=== PATIENT | female | born 1990 | race Caucasian/White ===

== ENCOUNTER → 2018-02-02 11:56 | Outpatient (CLI) | payer OTHER, SELFPAY ==
[2018-02-02 16:09] LABS: Estradiol 43.5 pg/mL; Follicle Stimulating Hormone 7.8 mIU/mL; Free T3 3.1 pg/mL (2.18-3.98); Luteinizing Hormone 10.8 mIU/mL; T4 Free Direct 0.95 ng/dL (0.76-1.46); Thyroid Stim Hormone (TSH) 3.38 uIU/mL (0.358-3.74)
[2018-02-02 16:11] LABS: hCG Titer Quant., Serum < 1 mIU/mL (<9 non-preg)
[2018-02-02 16:22] LABS: Hemoglobin A1c 5.2 % (4.2-6.3)
[2018-02-03 10:30] LABS: Progesterone Level 0.52 ng/mL (See Comment)
[2018-02-06 12:52] LABS: HPV Reflexed? NOT INDICATED
== END ==
PROVIDERS: Visit Provider Obstetrics & Gynecology
DX: N91.2 Amenorrhea, unspecified (principal); Z12.4 Encounter for screening for malignant neoplasm of cervix
CPT/HCPCS: 36415; 82670; 83001; 83002; 83036; 84144; 84403; 84439; 84443; 84481; 84702; 88175; G0145

== ENCOUNTER → 2018-06-01 08:37 | Outpatient (CLI) | payer OTHER, SELFPAY ==
[2018-06-01 09:38] LABS: hCG Titer Quant., Serum 124 mIU/mL (<9 non-preg)
== END ==
PROVIDERS: Family Provider Family Medicine; PCP Family Medicine; Visit Provider Obstetrics & Gynecology
DX: N91.2 Amenorrhea, unspecified (principal)
CPT/HCPCS: 36415; 84702

== ENCOUNTER → 2018-06-03 08:07 | Outpatient (CLI) | payer OTHER, SELFPAY ==
[2018-06-03 09:54] LABS: hCG Titer Quant., Serum 273 mIU/mL (<9 non-preg)
== END ==
PROVIDERS: Family Provider Family Medicine; PCP Family Medicine; Visit Provider Obstetrics & Gynecology
DX: N91.2 Amenorrhea, unspecified (principal)
CPT/HCPCS: 36415; 84702

== ENCOUNTER → 2018-07-04 15:55 | Outpatient (CLI) | payer OTHER, SELFPAY ==
[2018-07-04 16:59] LABS: Absolute Lymphocyte Count 2.22 X10^3/ul (0.83-4.51); Absolute Neutrophil Count 5.7 X10^3/uL (2.0-7.7); Basophil# 0.01 X10^3/uL; Basophil% 0.1 % (0-1); Eosinophil# 0.13 X10^3/uL; Eosinophils% 1.5 % (0-5); Hematocrit 38.7 % (37-47); Hemoglobin 12.6 g/dl (12.0-15.0); Lymphocyte # 2.22 X10^3/ul (4.0); Lymphocyte % 25.8 % (19-41); Mean Corp Hgb Conc 32.6 g/gl (32-36); Mean Corpuscular Hgb 26.9 pg (27.0-32.0); Mean Corpuscular Volume 82.5 fL (81-99); Mean Platelet Vol. 10.8 fl (6.2-12.0); Monocyte# 0.52 X10^3/uL; Neutrophil # 5.73 X10^3/uL (2.7-7.7); Neutrophil % 66.5 % (47-70); Platelet Count 232 K/mm3 (150-450); RBC Distribution Width CV 12.6 % (11.6-14.6); RBC Distribution Width SD 37.8 fl (35.1-43.9); Red Blood Count 4.69 M/mm3 (4.2-5.4); White Blood Count 8.6 K/mm3 (4.4-11.0)
[2018-07-04 17:05] LABS: POSITIVE COUNT NO; POSITIVE DIFFERENTIAL NO; POSITIVE MORPHOLOGY NO
[2018-07-04 18:16] LABS: HIV - WCH Non-Reactive (Nonreactive); Rubella IgG 116.3 IU/mL
[2018-07-04 20:32] LABS: Chlamydia Trachomatis by PCR Negative (Negative); Neisserai gonorrhoeae by PCR Negative (Negative); Probe Check PASS; Sample Adequacy Control PASS; Specimen Processing Control PASS
[2018-07-07 05:43] LABS: Rapid Plasmin Reagin (RPR) NONREACTIVE (NONREACTIVE)
[2018-07-07 13:10] LABS: HCV Quant. RNA PCR HCV Not Detected IU/mL (.)
[2018-07-07 13:41] LABS: HEPATITIS B SURFACE AG Negative (Negative)
== END ==
PROVIDERS: Family Provider Family Medicine; PCP Family Medicine; Referring Provider Obstetrics & Gynecology; Visit Provider Obstetrics & Gynecology
DX: Z34.90 Encounter for supervision of normal pregnancy, unspecified, unspecified trimester (principal)
CPT/HCPCS: 36415; 85025; 86592; 86703; 86762; 86850; 86900; 87086; 87088; 87340; 87491; 87522; 87591

== ENCOUNTER → 2018-09-01 13:39 | Outpatient (CLI) | payer OTHER, SELFPAY ==
[2018-09-01 13:18] VITALS: BMI 31.6
== END ==
PROVIDERS: Family Provider Family Medicine; PCP Family Medicine; Referring Provider Obstetrics & Gynecology; Visit Provider Obstetrics & Gynecology
DX: Z36.9 Encounter for antenatal screening, unspecified (principal)
CPT/HCPCS: 36415

== ENCOUNTER → 2018-11-14 14:14 | Outpatient (CLI) | payer OTHER, SELFPAY ==
[2018-11-14 13:50] VITALS: BMI 32.6
[2018-11-14 15:24] LABS: Absolute Lymphocyte Count 1.78 X10^3/ul (0.83-4.51); Absolute Neutrophil Count 6.6 X10^3/uL (2.0-7.7); Basophil# 0.02 X10^3/uL; Basophil% 0.2 % (0-1); Eosinophil# 0.21 X10^3/uL; Eosinophils% 2.3 % (0-5); Hematocrit 36.5 % (37-47); Hemoglobin 11.8 g/dl (12.0-15.0); Lymphocyte # 1.78 X10^3/ul (4.0); Lymphocyte % 19.8 % (19-41); Mean Corp Hgb Conc 32.3 g/gl (32-36); Mean Corpuscular Hgb 27.6 pg (27.0-32.0); Mean Corpuscular Volume 85.3 fL (81-99); Mean Platelet Vol. 11.1 fl (6.2-12.0); Monocyte# 0.37 X10^3/uL; Monocyte% 4.1 % (0-10); Neutrophil # 6.61 X10^3/uL (2.7-7.7); Neutrophil % 73.5 % (47-70); Platelet Count 186 K/mm3 (150-450); RBC Distribution Width CV 13.1 % (11.6-14.6); RBC Distribution Width SD 39.8 fl (35.1-43.9); Red Blood Count 4.28 M/mm3 (4.2-5.4)
[2018-11-14 15:27] LABS: POSITIVE COUNT NO; POSITIVE DIFFERENTIAL NO; POSITIVE MORPHOLOGY NO
[2018-11-14 16:02] LABS: Glucose Challenge Gest 1H 50g 162 mg/dL (70-140)
== END ==
PROVIDERS: Family Provider Family Medicine; PCP Family Medicine; Visit Provider Obstetrics & Gynecology
DX: Z34.00 Encounter for supervision of normal first pregnancy, unspecified trimester (principal)
CPT/HCPCS: 36415; 82950; 85025; 86850; 86900

== ENCOUNTER → 2018-11-22 10:04 | Outpatient (CLI) | payer OTHER, SELFPAY ==
[2018-11-14 13:50] VITALS: BMI 32.6
[2018-11-22 11:02] LABS: Glucose GTT-Gestation. Fasting 84 mg/dL (<105)
[2018-11-22 13:15] LABS: Glucose GTT-Gestational 1 Hr 154 mg/dL (<190)
[2018-11-22 13:47] LABS: Glucose GTT-Gestational 3 Hr 77 L (<145)
[2018-11-22 13:51] LABS: Glucose GTT-Gestational 2 Hr 141 mg/dL (<165)
== END ==
PROVIDERS: Family Provider Family Medicine; PCP Family Medicine; Referring Provider Nurse Practitioner Women's Health; Visit Provider Nurse Practitioner Women's Health
DX: O99.810 Abnormal glucose complicating pregnancy (principal); Z3A.00 Weeks of gestation of pregnancy not specified
CPT/HCPCS: 36415; 82951; 82952

== ENCOUNTER → 2019-01-10 | Outpatient (CLI) | payer OTHER, SELFPAY ==
[2019-01-10 14:55] VITALS: BMI 33.9
== END | disposition home or self-care (01) ==
LOC: LABSPEC 16:19
PROVIDERS: Family Provider Family Medicine; PCP Family Medicine; Referring Provider Nurse Practitioner Women's Health; Visit Provider Nurse Practitioner Women's Health
DX: Z34.03 Encounter for supervision of normal first pregnancy, third trimester (principal)
CPT/HCPCS: 87081

== ENCOUNTER 2019-02-12 19:05 | Inpatient (IN) | payer OTHER, SELFPAY ==
[2019-02-06 11:57] VITALS: BMI 34.4
[2019-02-12] MEDS: Lactated Ringers 1,000 ML 50 ML IV (19:35)
[2019-02-12 19:37] VITALS: BMI 35.1
[2019-02-12 20:00] LABS: Absolute Lymphocyte Count 2.47 X10^3/ul (0.83-4.51); Basophil# 0.01 X10^3/uL; Basophil% 0.1 % (0-1); Eosinophil# 0.18 X10^3/uL; Eosinophils% 1.7 % (0-5); Hematocrit 38.3 % (37-47); Hemoglobin 12.6 g/dl (12.0-15.0); Lymphocyte # 2.47 X10^3/ul (4.0); Lymphocyte % 23.9 % (19-41); Mean Corp Hgb Conc 32.9 g/gl (32-36); Mean Corpuscular Hgb 27.2 pg (27.0-32.0); Mean Corpuscular Volume 82.5 fL (81-99); Mean Platelet Vol. 11.5 fl (6.2-12.0); Monocyte% 6.8 % (0-10); Neutrophil # 6.95 X10^3/uL (2.7-7.7); Neutrophil % 67.4 % (47-70); POSITIVE COUNT NO; POSITIVE DIFFERENTIAL NO; POSITIVE MORPHOLOGY NO; Platelet Count 209 K/mm3 (150-450); RBC Distribution Width CV 13.9 % (11.6-14.6); RBC Distribution Width SD 41.4 fl (35.1-43.9); Red Blood Count 4.64 M/mm3 (4.2-5.4); White Blood Count 10.3 K/mm3 (4.4-11.0)
[2019-02-12] MEDS: 0.9% Normal Saline 100 ML IV.SOLN. INTRA-UTER (20:36)
[2019-02-12] MEDS: Oxytocin 30 units/NS 500 ml 30 UNITS/500 ML IV.SOLN IV (20:44)
[2019-02-13] MEDS: Lactated Ringers 1,000 ML 50 ML IV ×4 (01:56→15:38)
[2019-02-13] MEDS: fentaNYL-bupivacaine (epidural) 100 ML BAG EPIDURAL ×3 (03:31→12:41)
--- NOTE | 2019-02-13 04:29 | PCM.HPOB.BLA ---
- Problem List (1) Post-dates Status: Acute (2) Abnormal glucose affecting Status: Acute Comment: 3hr GTT normal (3) Family history of cleft lip Status: Acute (4) Status: Acute Qualifiers: Comment: Declined genetic, carrier screen. AFP negative. MFM anatomy US normal (5) Supervision of normal first Status: Acute Qualifiers: Comment: PRR POONAM 02/06/18 boy Michael Humphrey
[2019-02-13] MEDS: Ondansetron 4 MG/2 ML Vial IV (09:47)
[2019-02-13] MEDS: Oxytocin 30 units/NS 500 ml 30 UNITS/500 ML IV.SOLN 334 UNITS IV (16:11)
[2019-02-13] MEDS: Oxytocin 30 units/NS 500 ml 30 UNITS/500 ML IV.SOLN 167 UNITS IV (16:41)
--- NOTE | 2019-02-13 17:29 | OP.PCM_ITS ---
Problem List (1) Post-dates Status: Acute (2) Abnormal glucose affecting Status: Acute Comment: 3hr GTT normal (3) Family history of cleft lip Status: Acute (4) Status: Acute Qualifiers: Comment: Declined genetic, carrier screen. AFP negative. MFM anatomy US normal (5) Supervision of normal first Status: Acute Qualifiers: Comment: PRR POONAM 02/06/18 boy Michael Humphrey Vaginal Delivery Maternal Presentation: Medically Indicated Induction iol 41 weeks Method of Induction: Pitocin, Julian Bulb Amniotic Membrane Rupture Type: Spontaneous Amniotic Fluid Description: Clear Final POONAM: 02/06/19 Gestational age: 41 Weeks and Days Date of Procedure: 02/13/19 Pre-Operative Diagnosis: iol postdates Post-Operative Diagnosis: same Surgery/ Procedure Performed: Spontaneous Vaginal Delivery Type of Anesthesia: Epidural Description of Procedure: Patient began pushing and delivered the head in the JUVENAL presentation. The head was delivered atraumatically and a loose nuchal cord ?1 was identified and easily reduced over the 's head. The anterior and posterior shoulders delivered without complication followed by the rest of the and the was placed on the maternal abdomen. Delayed cord clamping was employed for approximately 60 seconds. Cord was clamped and cut and gentle traction was a pplied to the cord and the placenta delivered spontaneously immediately following it was noted to be intact with three-vessel cord. The perineum and vagina were inspected and noted to have no laceration. EBL was 300 cc. Patient and tolerated delivery well. Presentation: JUVENAL Placental Delivery Description: Spontaneous Placenta Disposition: [facility] Cord Vessel Description: 3 Vessels Cord Entanglement: Around neck x 1, loose Estimated Blood Loss: 300 A gender: Male Episiotomy Description: None Laceration: None Medications given after delivery: IV Pitocin Complications: None
[2019-02-13] MEDS: 0.9% Saline Lock 10 ML Syringe IV (19:27)
[2019-02-13 20:55] VITALS: BP 128/64; PULSE 109; RESP 18; TEMP 37.2
[2019-02-14 01:00] VITALS: BP 124/69; PULSE 98; RESP 18; TEMP 37.1
[2019-02-14 04:40] VITALS: BP 127/65; PULSE 106; RESP 18; TEMP 37
--- NOTE | 2019-02-14 08:33 | PCM.PN.OB ---
Patient Problems: Active and Suspected Problems (Last Reviewed 02/06/19 @ 11:57 by Antonia Bang) Post-dates (Acute) Subjective: doing well no complaints pain controlled no CP SOB N V ambulating well tolerating po lochia moderate, going well - Physical Exam General: Alert, Oriented x3 Abdomen: Soft, Non Tender, - - FF below U Vital Signs Temp Pulse Resp BP 98.6 F 106 H 18 127/65 H 02/14/19 04:40 02/14/19 04:40 02/14/19 04:40 02/14/19 04:40 Oxygen Delivery Method Room Air Weight: 231 lb Body Mass Index (BMI) 35.1 Intake and Output for Last 24 Hours 02/12/19 02/13/19 02/14/19 23:59 23:59 23:59 Intake Total 2214 / 2214 Output Total 650 / 650 Balance 1564 / 1564 Medical Necessity - Tobacco Use Smoking Status: Never smoker Assessment/Plan All Active Problems (Last Reviewed 02/06/19 @ 11:57 by Antonia Bang) Post-dates (Acute) Abnormal glucose affecting (Acute) Supervision of normal first (Acute) (Acute) Family history of cleft lip (Acute) s/p PPD # 1 1. routine post delivery care 2. breast feeding- support given 3. rh positive 4. rubella immune
[2019-02-14 09:20] VITALS: BP 116/62; PULSE 95; RESP 16; TEMP 36.8; O2SAT 97
[2019-02-14 13:00] VITALS: BP 116/72; PULSE 92; RESP 18; TEMP 36.8; O2SAT 97
[2019-02-14 20:30] VITALS: BP 127/71; PULSE 82; RESP 16; TEMP 36.9
[2019-02-15 01:26] VITALS: BP 126/65; PULSE 91; RESP 16; TEMP 36.6
--- NOTE | 2019-02-15 07:41 | PCM.PN.OB ---
Patient Problems: Active and Suspected Problems (Last Reviewed 02/06/19 @ 11:57 by Antonia Bang) Post-dates (Acute) Subjective: doing well no complaints pain controlled no CP SOB N V ambulating well tolerating po lochia moderate, going well - Physical Exam General: Alert, Oriented x3 Abdomen: Soft, Non Tender, - - FF below U Vital Signs Temp Pulse Resp BP Pulse Ox 97.9 F 91 16 126/65 H 97 02/15/19 01:26 02/15/19 01:26 02/15/19 01:26 02/15/19 01:26 02/14/19 13:00 Oxygen Delivery Method Room Air Weight: 231 lb Body Mass Index (BMI) 35.1 Intake and Output for Last 24 Hours 02/13/19 02/14/19 02/15/19 23:59 23:59 23:59 Intake Total 2214 / 2214 Output Total 650 / 650 Balance 1564 / 1564 Medical Necessity - Tobacco Use Smoking Status: Never smoker Assessment/Plan All Active Problems (Last Reviewed 02/06/19 @ 11:57 by Antonia Bang) Post-dates (Acute) Abnormal glucose affecting (Acute) Supervision of normal first (Acute) (Acute) Family history of cleft lip (Acute) s/p PPD # 2 1. routine post delivery care 2. breast feeding- support given 3. rh positive 4. rubella immune 5. Home today
--- NOTE | 2019-02-15 07:43 | PCM.DCVAG ---
Additional Instructions: If you experience any of the following, contact your healthcare provider. Bleeding that soaks a pad every hour for 2 hours Fever 100.4 or higher Unrelieved incision or abdominal pain Swelling, redness, discharge or bleeding from your incision or episiotomy site Your incision begins to separate Problems urinating (including inability to urinate or burning while urinating). Visual changes Severe headache Flu-like symptoms Pain or redness in one of both of your breasts Pain, warmth, tenderness or swelling in your legs, especially the calf area Frequent nausea and vomiting Symptoms of depression or anxiety If you experience any of the following, call 911 or go to the nearest Emergency Room. Chest pain Problems breathing Seizure activity Partial or complete paralysis of a body part, slurred speech, weakness or drooping of the face, or a sudden inability to walk or hold your balance Allergies/Adverse Reactions: Allergies amoxicillin [Amoxicillin] Allergy (Verified 02/12/19 20:23) Hives Medications to take at Discharge vitamin#30 30 mg iron-10 mg iron-folic acid 1 mg-omg3 capsule 1 cap PO DAILY cap 09/01/18 Primary Care Physician: Bebe Benoit MD [Primary Care Provider] - Test Results: Test results from this visit will be discussed in further detail at your follow-up appointment, if applicable.
--- NOTE | 2019-02-15 07:44 | DCINST_ITS ---
Additional Instructions: If you experience any of the following, contact your healthcare provider. * Bleeding that soaks a pad every hour for 2 hours * Fever 100.4 or higher * Unrelieved incision or abdominal pain * Swelling, redness, discharge or bleeding from your incision or episiotomy site * Your incision begins to separate * Problems urinating (including inability to urinate or burning while urinating). * Visual changes * Severe headache * Flu-like symptoms * Pain or redness in one of both of your breasts * Pain, warmth, tenderness or swelling in your legs, especially the calf area * Frequent nausea and vomiting * Symptoms of depression or anxiety If you experience any of the following, call 911 or go to the nearest Emergency Room. * Chest pain * Problems breathing * Seizure activity * Partial or complete paralysis of a body part, slurred speech, weakness or drooping of the face, or a sudden inability to walk or hold your balance Allergies/Adverse Reactions: Allergies amoxicillin [Amoxicillin] Allergy (Verified 02/12/19 20:23) Hives Medications to take at Discharge vitamin#30 30 mg iron-10 mg iron-folic acid 1 mg-omg3 capsule 1 cap PO DAILY cap 09/01/18 Primary Care Physician: Bebe Benoit MD [Primary Care Provider] - Test Results: Test results from this visit will be discussed in further detail at your follow- up appointment, if applicable.
[2019-02-15 09:00] VITALS: BP 126/71; PULSE 80; RESP 18; TEMP 36.3
[2019-02-15] MEDS: Naproxen 250 MG Tablet 500 MG PO (09:18)
== END 2019-02-15 12:25 | disposition home or self-care (01) | DRG 807 ==
PROVIDERS: Admitting Provider Obstetrics & Gynecology; Family Provider Family Medicine; PCP Family Medicine; Referring Provider Obstetrics & Gynecology; Visit Provider Obstetrics & Gynecology
DX: O48.0 Post-term pregnancy (principal); Z37.0 Single live birth; Z3A.41 41 weeks gestation of pregnancy; O69.81X0 Labor and delivery complicated by cord around neck, without compression, not applicable or unspecified
CPT/HCPCS: 59025; 59050; 85025; 86850; 86900; 99218; J7120; A4216; G0378; J2405

== ENCOUNTER → 2019-04-13 | Outpatient (CLI) | payer OTHER, SELFPAY ==
[2019-04-13 11:37] VITALS: BMI 32.4
[2019-04-18 11:04] LABS: HPV Reflexed? NOT INDICATED
== END | disposition home or self-care (01) ==
LOC: LABSPEC 13:32
PROVIDERS: Family Provider Family Medicine; PCP Family Medicine; Referring Provider Obstetrics & Gynecology; Visit Provider Obstetrics & Gynecology
DX: Z12.4 Encounter for screening for malignant neoplasm of cervix (principal)
CPT/HCPCS: 87624; 88175; G0145

== ENCOUNTER → 2020-04-25 | Outpatient (CLI) | payer OTHER, SELFPAY ==
[2019-04-13 11:37] VITALS: BMI 32.4
[2020-04-25 16:03] LABS: Potassium 4.3 mmol/L (3.5-5.1)
== END | disposition home or self-care (01) ==
LOC: LAB 14:45
PROVIDERS: PCP Family Medicine; Referring Provider Dermatology; Visit Provider Dermatology
DX: Z79.899 Other long term (current) drug therapy (principal); L70.0 Acne vulgaris; L40.8 Other psoriasis
CPT/HCPCS: 36415; 84132

== ENCOUNTER → 2020-11-07 13:15 | Outpatient (CLI) | payer OTHER, SELFPAY ==
[2019-04-13 11:37] VITALS: BMI 32.4
[2020-11-07 13:59] LABS: hCG Titer Quant., Serum < 1 mIU/mL (1-3)
== END ==
PROVIDERS: PCP Family Medicine; Referring Provider Obstetrics & Gynecology; Visit Provider Obstetrics & Gynecology
DX: N92.6 Irregular menstruation, unspecified (principal)
CPT/HCPCS: 36415; 84702

== ENCOUNTER → 2021-03-06 | Outpatient (CLI) | payer OTHER, SELFPAY ==
[2021-03-06 14:59] VITALS: BMI 34.3
[2021-03-10 17:33] LABS: HPV APTIMA, High Risk Negative (Negative)
== END | disposition home or self-care (01) ==
LOC: LABSPEC 16:40
PROVIDERS: PCP Family Medicine; Visit Provider Obstetrics & Gynecology
DX: Z12.4 Encounter for screening for malignant neoplasm of cervix (principal)
CPT/HCPCS: 87624; 88175; G0145

== ENCOUNTER → 2021-03-25 12:42 | Outpatient (CLI) | payer OTHER, SELFPAY ==
[2021-03-06 14:59] VITALS: BMI 34.3
[2021-03-18 14:59] VITALS: BMI 34.3
--- NOTE | 2021-03-25 12:43 | US_ITS ---
STUDY: THYROID ULTRASOUND REASON FOR EXAM: Female, 30 years old. Enlarged thyroid gland. TECHNIQUE: Ultrasound evaluation of the thyroid was performed with real-time and static christensen-scale imaging. COMPARISON: None. FINDINGS: RIGHT LOBE: 5.1 x 1.8 x 1.5 cm. Heterogenous. The wheat washer interrogated a 1.8 x 1.0 x 0.8 cm well-defined oval hypoechoic structure on the posterior margin of but probably external to the thyroid gland. No intrathyroid nodules are identified on the right. LEFT LOBE: 4.9 x 1.5 x 1.6 cm. Heterogenous. Nodule A:1.1 x 0.7 x 1.2 cm. Posterior aspect midpole. About half cystic, half solid. Isoechoic, solid than wide, smooth margin, punctate echogenic foci. TIRADS level Level 4. Nodule B: 0.9 x 0.5 x 1.0 cm. Also posterior aspect midpole. Solid, mixed hyperechoic and isoechoic, taller than wide, smooth margins, punctate echogenic foci. TIRADS Level 5. The technologist also interrogated a hypoechoic oval structure along the posterior margin of the thyroid gland likely the parathyroid gland. ISTHMUS: The isthmus measures 0.3 cm. US/Thyroid IMPRESSION: 2 left-sided nodules both of which have some suspicious features; consider referral for FNA or close ultrasound follow-up. Bilateral hypoechoic oval structures along the posterior margin of the thyroid gland interrogated by the technologist most likely represent parathyroid glands which are mildly prominent in size though likely physiologic; suggest correlation with parathyroid hormone levels. Electronically Signed: Navdeep Liu MD at 5:40 EDT Tel , Service support ,
[2021-03-25 14:09] LABS: T4 Free Direct 0.92 ng/dL (0.76-1.46); Thyroid Stim Hormone (TSH) 2.21 uIU/mL (0.358-3.74)
== END ==
PROVIDERS: PCP Family Medicine; Referring Provider Obstetrics & Gynecology; Visit Provider Obstetrics & Gynecology
DX: E28.2 Polycystic ovarian syndrome (principal)
CPT/HCPCS: 36415; 76536; 84439; 84443

== ENCOUNTER → 2021-04-23 14:44 | Outpatient (CLI) | payer OTHER, SELFPAY ==
--- NOTE | 2021-04-23 11:30 | ASPS_PTH ---
PATIENT: CB MCCANN LOC: [facility]#:[id number] AGE/SX: 34/F ROOM: RE04/23/[address]: Dr. Bill Trent MD : 1990 BED: DIS: SPEC #: [id number] RECD: 04/23/21 15:45 STATUS: NISA KEILY #: [id number] NESS: 04/23/21 11:[address]: Bill Trent DEPT: CYTOLOGY RECD BY: Karishma Ying ENTERED: 04/24/21 09:03 SP TYPE: ASPIRATION OTHR DR: Dr. Bebe Benoit MD Tissues: A - Thyroid gland, NOS B - Thyroid gland, NOS Procedures: Special Stain Group II Cytology Other HEADER OPERATION: Left thyroid fine needle aspiration PRE-OP DIAGNOSIS: Multiple thyroid nodules TISSUE SUBMITTED: A ? Left mid thyroid slides x6, B ? Left inferior thyroid slides x2 DIAGNOSIS CYTOLOGY A. Left mid thyroid nodule, FNA (smears): Consistent with chronic lymphocytic thyroiditis. Adequate for evaluation. B. Left inferior thyroid nodule, FNA (smears): Consistent with benign follicular nodule with extensive cystic changes. Adequate for evaluation. BUTCH:maisha 04/24/2021 COMMENT Correlation with clinical, radiologic findings and appropriate follow up are necessary. CYTOLOGY STUDY Slides are reviewed. CYTOLOGY GROSS A - Received are six smears labeled with the patient's name and designated per the requisition as left mid thyroid. Submitted for staining. B - Received are two smears labeled with the patient's name and designated per the requisition as left inferior thyroid. Submitted for staining. / maisha 04/24/2021 TC:5 CPT: 95606 x2
[2021-04-23 14:07] VITALS: BMI 33.4
[2021-04-23 15:28] LABS: PTHIN 80.8 pg/mL (18.4-80.1)
[2021-04-23 15:45] LABS: Calcium,Total 8.7 mg/dL (8.5-10.1); Phosphorus 3.6 mg/dL (2.5-4.9)
== END ==
PROVIDERS: PCP Family Medicine; Referring Provider Surgery; Visit Provider Surgery
DX: E04.2 Nontoxic multinodular goiter (principal); E21.5 Disorder of parathyroid gland, unspecified
CPT/HCPCS: 36415; 82310; 83970; 84100; 88161; 88313

== ENCOUNTER → 2021-08-24 08:37 | Outpatient (CLI) | payer OTHER, SELFPAY | PROVIDERS: PCP Family Medicine; Referring Provider Nurse Practitioner Women's Health; Visit Provider Nurse Practitioner Women's Health | DX: N97.0 Female infertility associated with anovulation (principal) | CPT/HCPCS: 36415 ==

== ENCOUNTER → 2021-09-11 11:11 | Outpatient (CLI) | payer OTHER, SELFPAY ==
[2021-09-11 11:51] LABS: Progesterone Level 1.02 ng/mL (See Comment)
== END ==
PROVIDERS: PCP Family Medicine; Referring Provider Nurse Practitioner Women's Health; Visit Provider Nurse Practitioner Women's Health
DX: N91.4 Secondary oligomenorrhea (principal)
CPT/HCPCS: 36415; 84144

== ENCOUNTER → 2021-09-21 15:15 | Outpatient (CLI) | payer OTHER, SELFPAY ==
[2021-09-21 15:53] LABS: hCG Titer Quant., Serum 16 mIU/mL (1-3)
== END ==
PROVIDERS: PCP Family Medicine; Referring Provider Obstetrics & Gynecology; Visit Provider Obstetrics & Gynecology
DX: N92.6 Irregular menstruation, unspecified (principal)
CPT/HCPCS: 36415; 84702

== ENCOUNTER → 2021-09-23 09:07 | Outpatient (CLI) | payer OTHER, SELFPAY ==
[2021-09-23 09:53] LABS: hCG Titer Quant., Serum 52 mIU/mL (1-3)
== END ==
PROVIDERS: PCP Family Medicine; Referring Provider Obstetrics & Gynecology; Visit Provider Obstetrics & Gynecology
DX: N92.6 Irregular menstruation, unspecified (principal)
CPT/HCPCS: 36415; 84702

== ENCOUNTER 2021-10-22 14:30 | Outpatient (CLI) | payer OTHER, SELFPAY ==
[2021-10-22 15:44] LABS: Thyroid Stim Hormone (TSH) 2.81 uIU/mL (0.358-3.74)
[2021-10-22 16:50] LABS: Amphetamine Urine VISTA NEGATIVE (<1000 ng/mL); Barbiturate Urine VISTA NEGATIVE (< 200 ng/mL); Benzodiazepine Urine VISTA NEGATIVE (< 200 ng/mL); Cocaine Urine VISTA NEGATIVE (< 300 ng/mL); Ecstacy Urine VISTA NEGATIVE (< 500 ng/mL); Methadone Urine VISTA NEGATIVE (< 300 ng/mL); PCP Urine VISTA NEGATIVE (< 25 ng/mL); THC Urine VISTA NEGATIVE (< 50 ng/mL); Vista UDS pH Range 7
[2021-10-26 18:08] LABS: Chlamydia By Nucleic Acid AMP Negative (Negative)
[2021-10-27 12:44] LABS: Gonococcus By Nucleic Acid AMP Negative (Negative)
== END 2021-10-22 23:59 | disposition short-term general hospital (02) ==
LOC: PAVLAB 14:31
PROVIDERS: PCP Family Medicine; Referring Provider Obstetrics & Gynecology; Visit Provider Obstetrics & Gynecology
DX: O99.280 Endocrine, nutritional and metabolic diseases complicating pregnancy, unspecified trimester (principal); E01.0 Iodine-deficiency related diffuse (endemic) goiter
CPT/HCPCS: 36415; 80307; 84443; 87086; 87088; 87491; 87591

== ENCOUNTER 2021-11-06 14:12 | Outpatient (CLI) | payer OTHER, SELFPAY ==
[2021-11-06 14:43] LABS: Absolute Lymphocyte Count 1.91 X10^3/uL (0.83-4.51); Absolute Neutrophil Count 5.1 X10^3/uL (2.0-7.7); Basophil# 0.02 X10^3/uL; Basophil% 0.3 % (0-1); Eosinophil# 0.17 X10^3/uL; Eosinophils% 2.2 % (0-5); Hematocrit 37.2 % (37-47); Hemoglobin 12.5 g/dL (12.0-15.0); Lymphocyte # 1.91 X10^3/ul (0.83-4.51); Lymphocyte % 25.1 % (19-41); Mean Corp Hgb Conc 33.6 g/dL (32-36); Mean Corpuscular Hgb 27.8 pg (27.0-32.0); Mean Corpuscular Volume 82.7 fL (81-99); Mean Platelet Vol. 10.7 fl (6.2-12.0); Monocyte# 0.35 X10^3/uL; Monocyte% 4.6 % (0-10); NRBC Flagged by Analyzer 0 % (0-5); Neutrophil # 5.14 X10^3/uL (2.7-7.7); Neutrophil % 67.7 % (47-70); Platelet Count 202 K/mm3 (150-450); RBC Distribution Width CV 12.3 % (11.6-14.6); RBC Distribution Width SD 37.5 fl (35.1-43.9); White Blood Count 7.6 K/mm3 (4.4-11.0)
[2021-11-06 15:07] LABS: PTHIN 45.8 pg/mL (18.4-80.1)
[2021-11-06 15:10] LABS: Glucose Challenge Gest 1H 50g 107 mg/dL (70-140)
[2021-11-06 15:32] LABS: Thyroid Stim Hormone (TSH) 2.02 uIU/mL (0.358-3.74)
[2021-11-06 15:52] LABS: HIV - WCH Non-Reactive (Nonreactive); Hepatitis B Surface Antigen Non-Reactive (Nonreactive); Hepatitis C Antibody Non-Reactive (Nonreactive); Rubella IgG Reactive (Nonreactive); Syphilis Antibodies Non-reactive
== END 2021-11-06 23:59 | disposition home or self-care (01) ==
LOC: LAB 14:15
PROVIDERS: Surgery; PCP Family Medicine; Referring Provider Obstetrics & Gynecology; Visit Provider Obstetrics & Gynecology
DX: O99.210 Obesity complicating pregnancy, unspecified trimester (principal); E04.1 Nontoxic single thyroid nodule
CPT/HCPCS: 36415; 82950; 83970; 84443; 85025; 86703; 86762; 86780; 86803; 86850; 86900; 86901; 87340

== ENCOUNTER 2021-11-16 14:31 | Outpatient (CLI) | payer OTHER, SELFPAY ==
[2021-04-23 14:07] VITALS: BMI 33.4
--- NOTE | 2021-11-16 14:37 | US_ITS ---
STUDY: THYROID ULTRASOUND REASON FOR EXAM: Female, 31 years old. thyroid nodules TECHNIQUE: Ultrasound evaluation of the thyroid was performed with real-time and static christensen-scale imaging. COMPARISON: 03/25/2021 FINDINGS: RIGHT LOBE: The right lobe of the thyroid gland measures 5.2 x 1.6 x 1.8 cm. There is a heterogeneous echotexture. There are no demonstrated solid, cystic or complex lesions. LEFT LOBE: The left lobe of the thyroid gland measures 4.9 x 1.7 x 1.7 cm. There is a heterogeneous echotexture. Nodule 1: Shrinking (7 x 8 x 4 mm from 12 x 7 x 11 mm) mixed cystic and solid isoechoic wider than tall ill-defined marginated nodule with no echogenic foci (TR 2) in the mid left lobe consistent with an adenoma. Nodule 2: No change in the 11 x 6 x 8 mm solid hypoechoic wider than tall ill-defined marginated nodule with no echogenic foci (TR 4) in the posterior left lobe consistent with an adenoma. ISTHMUS: The isthmus measures 4 mm thick. . The regional lymph nodes are normal. US/Thyroid IMPRESSION: Thyroiditis with small adenomas. Electronically Signed: Matt Ramirez MD at 15:30 EST ,
== END 2021-11-16 23:59 | disposition home or self-care (01) ==
PROVIDERS: PCP Family Medicine; Referring Provider Surgery; Visit Provider Surgery
DX: E04.1 Nontoxic single thyroid nodule (principal)
CPT/HCPCS: 76536

== ENCOUNTER 2021-12-31 11:43 | Outpatient (CLI) | payer OTHER, SELFPAY | END 2021-12-31 23:59 | disposition home or self-care (01) | PROVIDERS: PCP Family Medicine; Referring Provider Obstetrics & Gynecology; Visit Provider Obstetrics & Gynecology | DX: Z34.90 Encounter for supervision of normal pregnancy, unspecified, unspecified trimester (principal) | CPT/HCPCS: 36415 ==

== ENCOUNTER → 2022-02-26 | Outpatient (CLI) | payer OTHER, SELFPAY ==
[2022-02-26 12:36] LABS: Absolute Lymphocyte Count 1.83 X10^3/uL (0.83-4.51); Absolute Neutrophil Count 6.4 X10^3/uL (2.0-7.7); Basophil# 0.02 X10^3/uL; Basophil% 0.2 % (0-1); Eosinophil# 0.37 X10^3/uL; Eosinophils% 4.1 % (0-5); Hematocrit 35.7 % (37-47); Hemoglobin 11.4 g/dL (12.0-15.0); Lymphocyte # 1.83 X10^3/ul (0.83-4.51); Lymphocyte % 20.5 % (19-41); Mean Corp Hgb Conc 31.9 g/dL (32-36); Mean Corpuscular Hgb 27.2 pg (27.0-32.0); Mean Corpuscular Volume 85.2 fL (81-99); Mean Platelet Vol. 11.1 fl (6.2-12.0); Monocyte# 0.32 X10^3/uL; Monocyte% 3.6 % (0-10); NRBC Flagged by Analyzer 0 % (0-5); Neutrophil # 6.37 X10^3/uL (2.7-7.7); Neutrophil % 71.3 % (47-70); Platelet Count 198 K/mm3 (150-450); RBC Distribution Width CV 13.2 % (11.6-14.6); RBC Distribution Width SD 40.1 fl (35.1-43.9); Red Blood Count 4.19 M/mm3 (4.2-5.4); White Blood Count 8.9 K/mm3 (4.4-11.0)
[2022-02-26 13:07] LABS: Glucose Challenge Gest 1H 50g 147 mg/dL (70-140); Thyroid Stim Hormone (TSH) 1.53 uIU/mL (0.358-3.74)
== END | disposition home or self-care (01) ==
LOC: LAB 12:06
PROVIDERS: PCP Family Medicine; Referring Provider Obstetrics & Gynecology; Visit Provider Obstetrics & Gynecology
DX: O99.282 Endocrine, nutritional and metabolic diseases complicating pregnancy, second trimester (principal); E04.1 Nontoxic single thyroid nodule; Z3A.18 18 weeks gestation of pregnancy
CPT/HCPCS: 36415; 82950; 84443; 85025

== ENCOUNTER → 2022-03-11 | Outpatient (CLI) | payer OTHER, SELFPAY ==
[2022-03-11 08:09] LABS: Glucose GTT-Gestation. Fasting 87 mg/dL (<105)
[2022-03-11 09:15] LABS: Glucose GTT-Gestational 1 Hr 157 mg/dL (<190)
[2022-03-11 10:31] LABS: Glucose GTT-Gestational 2 Hr 167 mg/dL (<165)
[2022-03-11 10:33] LABS: Glucose GTT-Gestational 3 Hr 110 L (<145)
== END | disposition home or self-care (01) ==
LOC: LAB 06:52
PROVIDERS: PCP Family Medicine; Visit Provider Obstetrics & Gynecology
DX: Z13.1 Encounter for screening for diabetes mellitus (principal)
CPT/HCPCS: 36415; 82951; 82952

== ENCOUNTER → 2022-05-07 | Outpatient (CLI) | payer OTHER, SELFPAY | END | disposition home or self-care (01) | LOC: LABSPEC 16:44 | PROVIDERS: PCP Family Medicine; Referring Provider Obstetrics & Gynecology; Visit Provider Obstetrics & Gynecology | DX: Z34.80 Encounter for supervision of other normal pregnancy, unspecified trimester (principal) | CPT/HCPCS: 87081 ==

== ENCOUNTER 2022-06-04 21:47 | Outpatient (CLI) | payer OTHER, SELFPAY ==
[2022-06-04 21:58] VITALS: PULSE 106; TEMP 36.6; O2SAT 99
[2022-06-04 22:00] VITALS: BP 136/80; PULSE 103
[2022-06-04 22:04] VITALS: BMI 37.2
[2022-06-04 22:53] LABS: ROM Internal Control Test YES-OK TO RESULT pt. (Internal QC); ROM Patient Test Negative (Negative)
--- NOTE | 2022-06-08 03:40 | OB.TRI.PN ---
Progress Notes Progress Note: Patient presents for triage evaluation secondary to possible SROM and ctx FHT: 120 Moderate variability reactive no decelerations category I tracing [place]: irregular Contractions Assessment and plan: false labor membranes intact no cervical change Reactive NST, reassuring maternal and status patient discharged to home to follow-up as scheduled. See problem list details for additional plan information. Laboratory Studies: Laboratory Tests 06/04/22 Range/Units 22:10 Vag Amniotic Fld Detect Negative (Negative) Charges/Coding Procedures Urinary/Genital 52xxx-59xxx: 19865-70 non-stress test Interp
== END 2022-06-05 00:35 | disposition home or self-care (01) ==
LOC: WP 06-05 00:32 → WPOUT 06-07 08:01 → WP 06-07 08:02
PROVIDERS: PCP Family Medicine; Visit Provider Obstetrics & Gynecology
DX: O47.9 False labor, unspecified (principal)
CPT/HCPCS: 59025; 59050; 84112; 99218; G0378

== ENCOUNTER 2022-06-05 21:05 | Inpatient (IN) | payer OTHER, SELFPAY ==
[2022-06-05] VITALS (28 sets, daily range): BP systolic 108–152; BP diastolic 56–84; PULSE 82–125; TEMP 36.7–37.1; O2SAT 93–99; BMI 37.5
[2022-06-05] MEDS: LACTATED RINGERS 500 ML 999 ML IV (21:15)
[2022-06-05 21:33] LABS: Absolute Lymphocyte Count 1.76 X10^3/uL (0.83-4.51); Absolute Neutrophil Count 8.1 X10^3/uL (2.0-7.7); Basophil# 0.02 X10^3/uL; Basophil% 0.2 % (0-1); Eosinophil# 0.19 X10^3/uL; Eosinophils% 1.8 % (0-5); Hematocrit 36.8 % (37-47); Hemoglobin 11.7 g/dL (12.0-15.0); Lymphocyte # 1.76 X10^3/ul (0.83-4.51); Lymphocyte % 16.2 % (19-41); Mean Corp Hgb Conc 31.8 g/dL (32-36); Mean Corpuscular Hgb 26.5 pg (27.0-32.0); Mean Corpuscular Volume 83.3 fL (81-99); Mean Platelet Vol. 11.8 fl (6.2-12.0); Monocyte# 0.72 X10^3/uL; Monocyte% 6.6 % (0-10); NRBC Flagged by Analyzer 0 % (0-5); Neutrophil # 8.11 X10^3/uL (2.7-7.7); Neutrophil % 74.8 % (47-70); Platelet Count 186 K/mm3 (150-450); RBC Distribution Width CV 13.2 % (11.6-14.6); RBC Distribution Width SD 39.9 fl (35.1-43.9); Red Blood Count 4.42 M/mm3 (4.2-5.4); White Blood Count 10.8 K/mm3 (4.4-11.0)
[2022-06-05] MEDS: Lactated Ringers 1,000 ML 200 ML IV (21:46)
[2022-06-05] MEDS: fentaNYL-bupivacaine (epidural) 100 ML BAG EPIDURAL (22:12)
[2022-06-05] MEDS: Oxytocin 30 units/NS 500 ml 30 UNITS/500 ML IV.SOLN 334 UNITS IV (22:54)
--- NOTE | 2022-06-05 23:01 | HP.PCM.OB_ITS ---
HPI - General General Date of Admission: 06/05/22 HPI Narrative CB MCCANN, is a 31 F who presents IAL 5 cm dilated no vb lof good fm regular ctx. Maternal Data Information POONAM Calculator Estimated Delivery Date Method Current WG Current Estimate 06/03/22 Ultrasound #1 40w 2d Other Estimates 05/29/22 LMP (Uncertain) 41w 0d 06/03/22 Manual 40w 2d PFSH PFSH Medical History Left thyroid nodule PCOS (polycystic ovarian syndrome) Home Medications vitamin#30 30 mg iron-10 mg iron-folic acid 1 mg-omg3 capsule 1 cap PO DAILY 09/01/18 [History Last Taken 02/12/19 08:00] Allergy/AdvReac Type Severity Reaction Status Date / Time amoxicillin [Amoxicillin] Allergy Hives Verified 06/04/22 22:05 Surgical History S/P tonsillectomy and adenoidectomy Social History adopted: No household members: spouse and children number of children: 1 pets and animals: No Smoking Status: Never smoker alcohol intake: never substance use type: does not use caffeine: Yes seatbelt use: always do you feel safe at home: Yes additional social history: Nayely Smith Patient works at [employer] History 1 Elective abortions Hx Para 1 Spontaneous abortions Hx # Term Pregnancies Ectopic pregnancies Hx # Pregnancies Multiple births # of living children 1 Past Pregnancies Del. Date Name GA/Weeks Outcome Route Bth Weight Gen Labor Lgth Anesthesia Del Locatn Provider FOB 02/13/19 Michael 41 live - full term Male epidu ral [facility] Delivery Date: 02/13/19 Last Updated by: Talita Nava Post dates Visit Details Expected Delivery Route/Plan Labor Preferences- CB/BF classes: [] labor support person: [] labor intervention preferences: [] pain management options preferred: [] cut cord/dad catch: [] : [] PP control planned: [] discussed possible routes of delivery and associated risks: [] special requests: [] Plans Covid status: vaccinated and pos in pastg Flu vaccine: given Tdap vaccine: given Rhogam: na LARC form signed: declined movement and labor precautions reviewed. Problem list reviewed and updated with the most current plan of care details and appropriate orders placed. Relevant counseling for the gestational age provided. Continue routine care and follow up unless otherwise noted in visit notes/problem list details OB Flowsheet Initial Weight: 235 lb Date -?-?-?-?-?-?-?-?-?-?-?-?- EGA Weight BP Urine Prot -?-?-?-?-?-?-?-?-?-?-?-?- Glucose FHR FuHt Pres Dilation -?-?-?-?-?-?-?-?-?-?-?-?- Effaced St Visit Note 10/22/21 -?-?-?-?-?-?-?-?-?-?-?-?- 8w 0d 235 lb (+0 oz) 134/82 -?-?-?-?-?-?-?-?-?-?-?-?- 160 -?-?-?-?-?-?-?-?-?-?-?-?- SM- CRL 1.48 cm NOT cons with LMP 11/06/21 -?-?-?-?-?-?-?-?-?-?-?-?- 10w 1d 138/82 -?-?-?-?-?-?-?-?-?-?-?-?- 170 -?-?-?-?-?-?-?-?-?-?-?-?- SM- viable IUP s een hematoma resolved fu 4 weeks labs getting drawn today 12/01/21 -?-?-?-?-?-?-?-?-?-?-?-?- 13w 5d 232 lb 6 oz (-2 lb 10 oz) 124/80 Negative -?-?-?-?-?-?-?--?-?-?-?-?- Negative 140 -?-?-?-?-?-?-?-?-?-?-?-?- SM- no vb crampi ng 12/31/21 -?-?-?-?-?-?-?-?-?-?-?-?- 18w 0d 230 lb (-5 lb) 94/60 Negative -?-?-?-?-?-?-?-?-?-?-?-?- Negative 145 -?-?-?-?-?-?-?-?-?-?-?-?- SM- no vb lof go od fm no regular ctx 01/28/22 -?-?-?-?-?-?-?-?-?-?-?-?- 22w 0d 237 lb (+2 lb) 128/70 Negative -?-?-?-?-?-?-?-?-?-?-?-?- Negative 130 -?-?-?-?-?-?-?-?-?--?-?-?- JV- no lof ,vagi nal bleeding, or cramping. gct ordered. normal anatomy 02/26/22 -?-?-?-?-?-?-?-?-?-?-?-?- 26w 1d 240 lb 8 oz (+5 lb 8 oz) 136/70 Negative -?-?-?-?-?-?-?-?-?-?-?-?- Negative 135 25 -?-?-?-?-?-?-?-?-?-?-?-?- JV- glucola toda y. no lof, vaginal bleeding, or dec fm. 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 works at [employer] 03/12/22 -?-?-?-?-?-?-?-?-?-?-?-?- 28w 1d 240 lb (+5 lb) 240 lb (+5 lb) 128/70 Negative -?-?-?-?-?-?-?-?-?-?-?-?- Negative 148 28 -?-?-?-?-?-?-?-?-?-?-?-?- JV- no complaint s. tdap today. 03/26/22 -?-?-?-?-?-?-?-?-?-?-?-?- 30w 1d 242 lb (+7 lb) 128/84 Negative -?-?-?-?-?-?-?-?-?-?-?-?- Negative 135 30 -?-?-?-?-?-?-?-?-?--?-?-?- SM- no vb lof go od fm no regular ctx 04/09/22 -?-?-?-?-?-?-?-?-?-?-?-?- 32w 1d 241 lb 8 oz (+6 lb 8 oz) 126/60 Negative -?-?-?-?-?-?-?-?-?-?-?-?- Negative 135 33 -?-?-?-?-?-?-?-?-?-?-?-?- SM- no vb lof g ood fm no reuglar ctx 04/23/22 -?-?-?-?-?-?-?-?-?-?-?-?- 34w 1d 242 lb 8 oz (+7 lb 8 oz) 120/68 1+ -?-?-?-?-?-?-?-?-?-?-?-?- Negative 135 35 -?-?-?-?-?-?-?-?-?-?-?-?- SM no vb lof goo d fm no regualr ctx 05/07/22 -?-?-?-?-?-?-?-?-?-?-?-?- 36w 1d 245 lb 4 oz (+10 lb 4 oz) 117/74 Negative -?-?-?-?-?-?-?-?-?-?-?-?- Negative 135 36 -?-?-?-?-?-?-?-?-?-?-?-?- SM- no vb lof go od fm no regular ctx 05/13/22 -?-?-?-?-?-?-?-?-?-?-?-?- 37w 0d 246 lb (+11 lb) 124/76 Negative -?-?-?-?-?-?-?-?-?-?-?-?- Negative 135 37 Cephalic -?-?-?-?-?-?-?-?-?-?-?-?- SM- no vb lof go od fm n oregular ctx 05/21/22 -?-?-?-?-?-?-?-?-?-?-?-?- 38w 1d 267 lb (+32 lb) 124/72 Negative -?-?-?-?-?-?-?-?-?-?-?-?- Negative 131 38 Cephalic 3 -?-?-?-?-?-?-?-?-?-?-?-?- 60 -2 JV- no lof , vaginal bleeding, or dec fm. wants IOL at 39 weeks 05/28/22 -?-?-?-?-?-?-?-?-?-?-?-?- 39w 1d 247 lb (+12 lb) 122/82 Negative -?-?-?-?-?-?-?-?-?-?-?-?- Negative 135 40 Cephalic -?-?-?-?-?-?-?-?-?-?-?-?- JV- no lof, vagi nal bleeding, or dec fm. iol got moved to tuesday next week. 06/02/22 -?-?-?-?-?-?-?-?-?-?-?-?- 39w 6d 246 lb 6 oz (+11 lb 6 oz) 130/80 Trace -?-?-?-?-?-?-?-?-?-?-?-?- Negative 136 39 Cephalic 4 -?-?-?-?-?-?-?-?-?-?-?-?- 70 -1 -No CTX. Good FM. No VB, LOF. IOL sched 06/04. 06/05/22 -?-?-?-?-?-?-?-?-?-?-?-?- 40w 2d 246 lb 14.684 oz (+11 lb 14.684 oz) 136/65 152/72 146/81 148/75 108/56 136/65 129/62 128/70 134/68 123/65 134/84 134/60 -?-?-?-?-?-?-?-?-?-?-?-?- -?-?-?-?-?-?-?-?-?-?-?-?- NST FHR Rate Baby A Baseline: 140 Variability:: Moderate Accelerations:: 15 x 15 Decelerations:: None NST Reactive:: Yes FHR Category:: Category I Uterine Activity:: q3-5 ROS Constitutional Constitutional: Reports systems reviewed and no addt'l complaints, except as documented ENT HEENT: Reports systems reviewed and no addt'l complaints, except as documented Cardiovascular Cardiovascular: Reports systems reviewed and no addt'l complaints, except as documented Respiratory/Chest Respiratory/Chest: Reports systems reviewed and no addt'l complaints, except as documented Gastrointestinal Gastrointestinal: Reports systems reviewed and no addt'l complaints, except as documented and nausea; Denies abdominal pain Genitourinary Genitourinary: Reports systems reviewed and no addt'l complaints, except as documented, contractions Details: present and frequency (regular ) and movement Details: present Musculoskeletal Musculoskeletal: Reports systems reviewed and no addt'l complaints, except as documented Integumentary Integumentary: Reports as per HPI Neurologic Neurologic: Reports systems reviewed and no addt'l complaints, except as documented Endocrine Endocrinology: Reports systems reviewed and no addt'l complaints, except as documented Vital Signs Vital Signs Vital Signs: 06/05/22 21:15 06/05/22 21:15 06/05/22 21:15 Temperature Temperature Source Pulse Rate 87 Blood Pressure 136/65 H BP Systolic 136 BP Diastolic 65 Pulse Ox 97 06/05/22 21:15 06/05/22 21:15 06/05/22 21:48 Temperature 98.8 F Temperature Source Temporal Pulse Rate 95 Blood Pressure BP Systolic BP Diastolic Pulse Ox 06/05/22 21:48 06/05/22 21:52 06/05/22 21:52 Temperature Temperature Source Pulse Rate 96 Blood Pressure BP Systolic BP Diastolic Pulse Ox 93 98 06/05/22 21:54 06/05/22 21:54 06/05/22 21:57 Temperature Temperature Source Pulse Rate 96 91 Blood Pressure 152/72 H BP Systolic 152 BP Diastolic 72 Pulse Ox 06/05/22 21:57 06/05/22 21:58 06/05/22 21:58 Temperature Temperature Source Pulse Rate 90 Blood Pressure 146/81 H BP Systolic 146 BP Diastolic 81 Pulse Ox 98 06/05/22 22:02 06/05/22 22:02 06/05/22 22:03 Temperature Temperature Source Pulse Rate 96 Blood Pressure 148/75 H BP Systolic 148 BP Diastolic 75 Pulse Ox 98 06/05/22 22:03 06/05/22 22:07 06/05/22 22:07 Temperature Temperature Source Pulse Rate 105 H 114 H Blood Pressure BP Systolic BP Diastolic Pulse Ox 97 06/05/22 22:09 06/05/22 22:09 06/05/22 22:12 Temperature Temperature Source Pulse Rate 125 H 110 H Blood Pressure 108/56 L BP Systolic 108 BP Diastolic 56 Pulse Ox 06/05/22 22:12 06/05/22 22:13 06/05/22 22:13 Temperature Temperature Source Pulse Rate 107 H Blood Pressure 136/65 H BP Systolic 136 BP Diastolic 65 Pulse Ox 98 06/05/22 22:17 06/05/22 22:17 06/05/22 22:19 Temperature Temperature Source Pulse Rate 107 H Blood Pressure 129/62 H BP Systolic 129 BP Diastolic 62 Pulse Ox 97 06/05/22 22:19 06/05/22 22:23 06/05/22 22:23 Temperature Temperature Source Pulse Rate 108 H 114 H Blood Pressure 128/70 H BP Systolic 128 BP Diastolic 70 Pulse Ox 06/05/22 22:22 06/05/22 22:28 06/05/22 22:28 Temperature Temperature Source Pulse Rate 109 H Blood Pressure 134/68 H BP Systolic 134 BP Diastolic 68 Pulse Ox 99 06/05/22 22:27 06/05/22 22:33 06/05/22 22:33 Temperature Temperature Source Pulse Rate 97 Blood Pressure 123/65 H BP Systolic 123 BP Diastolic 65 Pulse Ox 94 06/05/22 22:32 06/05/22 22:37 06/05/22 22:37 Temperature Temperature Source Pulse Rate 96 Blood Pressure BP Systolic BP Diastolic Pulse Ox 99 98 06/05/22 22:38 06/05/22 22:38 06/05/22 22:56 Temperature Temperature Source Pulse Rate 96 Blood Pressure 134/84 H 134/60 H BP Systolic 134 134 BP Diastolic 84 60 Pulse Ox 06/05/22 22:56 Temperature Temperature Source Pulse Rate 90 Blood Pressure BP Systolic BP Diastolic Pulse Ox Weight Weight: 246 lb 14.684 oz Body Mass Index (BMI) 37.5 Physical Exam Const alert, oriented x3 and healthy appearing Constitutional Narrative: uncomfortable with contractions HEENT normocephalic and moist oral mucous membranes Head and Scalp: atraumatic Neck full ROM, no lymphadenopathy, supple and thyroid normal General: trachea midline Thyroid: thyroid normal Lymph Lymphatic: no lymphadenopathy noted Chest inspection of chest normal Resp normal respiratory effort Cardio regular rate GI normal to inspection, nondistended, normoactive bowel sounds, soft to palpation and non-tender Inspection: gravid external exam normal Bimanual Exam - Vag & Uterus: uterus non-tender Manual OB Exam: estimated gestational size appropriate, presentation cephalic, dilated, effaced and station Extremity normal to inspection General Extremity: Negative for edema Skin no rashes or lesions noted Neuro deep tendon reflexes 2+ bilaterally Motor Exam: strength 5/5 throughout and clonus absent Psych mental status grossly normal Labs Labs Labs: Blood Type A POSITIVE Antibody Screen NEGATIVE Hct 36.8 % (37-47) L Hgb 11.7 g/dL (12.0-15.0) L Syphilis Total Ab Non-reactive VZV IgG Antibody 1610 index (0-134) H Rubella IgG Antibody Reactive (Nonreactive) Hep Bs Antigen Non-Reactive (Nonreactive) Chlamydia DNA (KARLOS) Negative (Negative) Neisseria gonorrhoeae DNA (KARLOS) Negative (Negative) HIV 1&2 Antibody Non-Reactive (Nonreactive) Glucose 1 Hr 50 gm 147 mg/dL (70-140) H Rhogam given: No Miscellaneous Test Assessment & Plan (1) Left thyroid nodule: COMMENT: neg bx. Needs rpt US and OV with Dr Trent 10/2021, labs ordered (2) Obesity affecting : COMMENT: 1 tm gct nl (3) : QUALIFIERS: Weeks of gestation: 39 weeks Qualified Code(s): Z3A.39 - 39 weeks gestation of COMMENT: GBS neg. declined genetic, carrier screen. Neg AFP, nl anatomy (4) Supervision of other normal : COMMENT: PRR POONAM 06/03/22 boy Vitor PC:Michael Spouse:Humphrey (5) Infertility associated with anovulation: COMMENT: clomid (6) Family history of cleft lip: COMMENT: Pt father with unilateral cleft lip (7) Vaginal delivery: COMMENT: SM IAL 40 boy Wake PLAN: Plan Patient presents IAL, plan expectant management for , pitocin/AROM PRN if needed. Pain management: plans epidural. GBS neg. Management of any complications: none I have reviewed the [facility] and made any clinically relevant updates.
--- NOTE | 2022-06-05 23:06 | EX.PCM.OBRPT ---
Assessment & Plan (1) Vaginal delivery: COMMENT: SM IAL 40 boy White (2) Left thyroid nodule: COMMENT: neg bx. Needs rpt US and OV with Dr Trent 10/2021, labs ordered (3) Obesity affecting : COMMENT: 1 tm gct nl (4) : QUALIFIERS: Weeks of gestation: 39 weeks Qualified Code(s): Z3A.39 - 39 weeks gestation of COMMENT: GBS neg. declined genetic, carrier screen. Neg AFP, nl anatomy (5) Supervision of other normal : COMMENT: PRR POONAM 06/03/22 boy White PC:Michael Spouse:Humphrey (6) Infertility associated with anovulation: COMMENT: clomid (7) Family history of cleft lip: COMMENT: Pt father with unilateral cleft lip Maternal Data Information POONAM Calculator Estimated Delivery Date Method Current WG Current Estimate 06/03/22 Ultrasound #1 40w 2d Other Estimates 05/29/22 LMP (Uncertain) 41w 0d 06/03/22 Manual 40w 2d Vaginal Delivery Operative Information Date of Procedure: 06/05/22 Pre-Operative Diagnosis: IAL Post-Operative Diagnosis: same Surgery / Procedure Performed: Spontaneous Vaginal Delivery Type of Anesthesia: Epidural Special Medications: none Estimated Blood Loss: 200 Fluids Replaced: crystalloid Findings Description of Procedure: Patient began pushing and delivered the head in the JUVENAL presentation. The head was delivered atraumatically . The anterior and posterior shoulders delivered without complication followed by the rest of the infant and the infant was placed on the maternal abdomen. Delayed cord clamping was employed for approximately 60 seconds. Cord was clamped and cut and gentle traction was applied to the cord and the placenta delivered spontaneously immediately following it was noted to be intact with three-vessel cord. The perineum and vagina were inspected and noted to have no laceration. EBL was 200. Patient and infant tolerated delivery well. Presentation: JUVENAL Amniotic Membrane Rupture Type: Spontaneous Amniotic Fluid Description: Clear Placental Delivery Description: Spontaneous Placenta Disposition: [facility] Cord Vessel Description: 3 Vessels Cord Entanglement: None Infant A Gender: Male Delayed Cord Clamping: Yes Post Vaginal Delivery Medications Given After Delivery: IV Pitocin Episiotomy Description: None Laceration: None Complication Complications: None Procedures Urinary/Genital 52xxx-59xxx: 74002 Vaginal Delivery [facility]
--- NOTE | 2022-06-05 23:08 | DCINST_ITS ---
Discharge Instructions Diet Discharge Diet: No restrictions Activity Discharge Activity: Return to Normal Activity, May Drive, May Shower and May Take a Tub Bath (in 4 weeks) May resume sexual activity in: 6-8 weeks (after seen by OB provider) Weight Bearing Status: Full weight bearing Lifting Restrictions: none Dressing / Incision Call your doctor if you observe: Fever of 101 or Higher, Inability to urinate, Using more than 1 pad per hour (for more than 2 hours in a row or more), Shortness of breath, Dizziness, Chest pain and - (headache not controlled with tylenol, change in vision) Follow Up Care When: in 6 weeks for visit, call the office to make the appointment. If you had elevated blood pressures call the office to be seen within 1 week. Test Results: Test results from this visit will be discussed in further detail at your follow- up appointment, if applicable. Discharge Plan Admission Admit Date/Time: 06/05/22 21:05 Attending Provider: Winnie Marin Primary Care Provider: Bebe Benoit Discharge Orders/Prescriptions Prescriptions: No Action vitamin#30 30 mg iron-10 mg iron-folic acid 1 mg-omg3 capsule 30 mg iron-10 mg iron-1 mg capsule 1 cap PO DAILY Referrals / Follow Up: Bebe Benoit MD [Primary Care Provider] - Disposition Disposition (needs filled in before D/C Order can be placed): Home, Self Care
[2022-06-06] VITALS (12 sets, daily range): BP systolic 119–138; BP diastolic 62–80; PULSE 67–96; RESP 16–20; TEMP 36.2–36.7; O2SAT 97–99
[2022-06-06] MEDS: 0.9% Saline Lock 10 ML Syringe IV (01:09)
--- NOTE | 2022-06-06 06:39 | PCM.PN.OB ---
Subjective Subjective Patient doing well without complaints. Tolerating PO. Ambulating and voiding without difficulty. infant feeding well. Denies chest pain, shortness of breath, calf pain/swelling, fevers, chills, lightheadedness. Objective Data Objective Data Vital Signs: Vital Signs Temp Pulse Resp BP Pulse Ox O2 Del Method 97.2 F L 96 17 119/66 98 Room Air 06/06/22 03:47 06/06/22 03:47 06/06/22 03:47 06/06/22 03:47 06/06/22 03:47 06/06/22 03:47 Oxygen Delivery Method Room Air Weight: 246 lb 14.684 oz Body Mass Index (BMI) 37.5 Intake & Output: Intake and Output for Last 24 Hours 06/04/22 06/05/22 06/06/22 23:59 23:59 23:59 Intake Total 887 / 887 333 / 333 Output Total 250 / 250 Balance 887 / 887 83 / 83 Lab / Micro Data Result Diagrams: 06/05/22 21:15 Labs: Laboratory Results - last 24 hr 06/05/22 21:15: WBC 10.8, RBC 4.42, Hgb 11.7 L, Hct 36.8 L, MCV 83.3, MCH 26.5 L, MCHC 31.8 L, RDW Std Deviation 39.9, RDW Coeff of Milly 13.2, Plt Count 186, MPV 11.8, Immature Gran % (Auto) 0.400, Neut % (Auto) 74.8 H, Lymph % (Auto) 16.2 L, [place] % (Auto) 6.6, Eos % (Auto) 1.8, Baso % (Auto) 0.2, Absolute Neuts (auto) 8.1 H, Absolute Lymphs (auto) 1.76, Nucleated RBC % 0 06/05/22 21:15: Blood Type A POSITIVE, Antibody Screen NEGATIVE Micro: Microbiology 06/05/22 21:15 Nasal Secretion SARS-CoV-2 Antigen (Rapid) - Final ROS Constitutional Constitutional: Reports systems reviewed and no addt'l complaints, except as documented Cardiovascular Cardiovascular: Reports systems reviewed and no addt'l complaints, except as documented Respiratory/Chest Respiratory/Chest: Reports systems reviewed and no addt'l complaints, except as documented Gastrointestinal Gastrointestinal: Reports systems reviewed and no addt'l complaints, except as documented Physical Exam Const alert, oriented x3 and no apparent distress HEENT Head and Scalp: atraumatic Resp normal respiratory effort GI soft to palpation and non-tender Bimanual Exam - Vag & Uterus: uterus non-tender Uterus Palpation: uterus fundus firm (below Umbilicus) Assessment & Plan (1) Vaginal delivery: COMMENT: SM IAL 40 boy [place] PLAN: Plan s/p PPD # 1 1. routine post delivery care 2. breast feeding- support given 3. rh positive 4. rubella immune
[2022-06-06] MEDS: Acetaminophen 500 MG Tablet 1000 MG PO ×2 (08:33→20:39)
[2022-06-06] MEDS: Naproxen 500 MG Tablet PO (17:09)
[2022-06-07 01:14] VITALS: BP 103/54; PULSE 71; RESP 16; TEMP 36.2
[2022-06-07 08:25] VITALS: BP 127/68; PULSE 82; RESP 18; TEMP 36.3; O2SAT 97
== END 2022-06-07 11:14 | disposition home or self-care (01) | DRG 807 ==
LOC: WPOUT 21:13 → WP 21:13
PROVIDERS: Admitting Provider Obstetrics & Gynecology; PCP Family Medicine; Visit Provider Obstetrics & Gynecology
DX: O99.284 Endocrine, nutritional and metabolic diseases complicating childbirth (principal); Z37.0 Single live birth; E04.1 Nontoxic single thyroid nodule; O99.214 Obesity complicating childbirth; Z3A.39 39 weeks gestation of pregnancy
CPT/HCPCS: 59050; 85025; 86850; 86900; 86901; 87811; 99218; J7120; A4216; G0378

== ENCOUNTER → 2023-10-13 | Outpatient (CLI) | payer OTHER, SELFPAY ==
--- OUTSIDE RECORDS SUMMARY | 2023-10-13 12:36 | XMS RPT_ITS | CCD ---
Author Name Unknown Address [address] [place] [address] Organization [facility] Care Team Providers Care Plastics Design Engineer Name Role Phone [place] DIGGS, Whitney Ly Unavailable [phone] Lavinia Burk LPN Unavailable UnavailJOSE LUIS Ponce Unavailable Unavailable GABI BONE Unavailable UnavailARIN Macias Unavailable Unavailable WILIAN SIMMS Unavailable Unavailable GABI BONE Unavailable UnavailARIN [place]ias Unavailable Unavailable Allergies Allergy Classification Reported Allergen(s) Allergy Type Date of Onset Reaction(s) Facility (3 sources) penicillin g drug allergy 7 [facility] Work Phone: (1 source) Penicillins; Translations: [PENICILLINS] Propensity to adverse reactions to drug (disorder) 7 [facility] Repository Medications Completed/Discontinued Medications Medication Drug Class(es) Dates Sig (Normalized) Sig (Original) ETONOGESTREL-ETHINYL ESTRADIOL (3 sources) Progestin, Estrogen NUVARING 0.12-0.015 MG/24HR RING Use as directed. ETONOGESTREL-ETHINY L ESTRADIOL [id number] Whitney Toledo NP metFORMIN hydrochloride 500 mg oral tablet (2 sources) Biguanide Start: 01-27-2017 End: 04-29-2025 METFORMIN HCL 500 MG TABS Take one tablet at breakfast and one at supper METFORMIN HCL [id number] Whitney Toledo NP spironolactone 100 mg oral tablet (3 sources) Aldosterone Antagonist take 1 tablet by mouth once daily SPIRONOLACTONE 100 MG TABS One tablet by mouth daily SPIRONOLACTONE [id number] Whitney Toledo NP Problems Problem Classification Problem Date Documented Da te Episodic/Chronic Other endocrine disorders (3 sources) Polycystic ovaries; Translations: [Polycystic ovarian syndrome] Onset: 01-19-2017 01-19-2017 Chronic Results Test Name Value Interpretation Reference Range Facil ity Vital Signs Date Time Vital Sign Value Performing Clinician Facility 01-19-2017 14:09-0400 BMI (Body Mass Index) 28.7 kg/m2 [facility] Work Phone: 01-19-2017 14:09-0400 BP Diastolic 85 mm[Hg] Lavinia Burk LPN [facility] Work Phone: 01-19-2017 14:09-0400 BP Systolic 127 mm[Hg] Lavinia Burk LPN [facility] Work Phone: 01-19-2017 14:09-0400 Height 172.72 cm Lavinia Burk LPN [facility] Work Phone: 01-19-2017 14:09-0400 Pulse (Heart Rate) 88 /min [facility] Work Phone: 01-19-2017 14:09-0400 Pulse Oximetry 98 % Lavinia Burk LPN [facility] Work Phone: 01-19-2017 14:09-0400 Respiratory Rate 16 /min [facility] Work Phone: 01-19-2017 14:09-0400 Weight 85.64 kg Lavinia Burk LPN [facility] Work Phone: Encounters Encounter Date Encounter Type Care Provider Facility Start: 09-25-2018 End: 09-25-2018 Patient encounter procedure WILIAN SIMMS [facility] Start: 09-11-2018 End: 09-11-2018 Patient encounter procedure JOSE LUIS Javy NICHOLE [facility] Procedures Date Procedure Procedure Detail Performing Clinician Start: 02-22-2017 End: 02-28-2017 Us exam, pelvic, complete Whitney Toledo BOOK AGENT Work Phone: Start: 01-19-2017 End: 02-28-2017 *CMP Complete Metabolic Panel Whitney Calderón hussein BOOK AGENT Work Phone: Start: 01-19-2017 End: 02-28-2017 *MISC - Miscellaneous Lab Test #1 Whitney Toledo BOOK AGENT Work Phone: Start: 01-19-2017 End: 02-28-2017 *MISC2 - Miscellaneious Lab Test #2 Whitney Toledo BOOK AGENT Work Phone: Start: 01-19-2017 End: 02-28-2017 Dehydroepiandrosterone sulfate (DHEA-S) Whitney Ly [place] BOOK AGENT Work Phone: Start: 01-19-2017 End: 02-28-2017 Lipid panel [AGGREGATE] Whitney Malachi Toledo N P Work Phone: Start: 01-19-2017 End: 02-28-2017 Testosterone Whitney Delgadowillow BOOK AGENT Work Phone: Plan of Treatment Date Care Activity Detail Author Start: 02-22-2017 End: 02-28-2017 Us exam, pelvic, complete US Pelvis [facility] Work Phone: Start: 01-19-2017 End: 02-28-2017 *CMP Complete Metabolic Panel *CMP Complete Metabolic Panel [facility] Work Phone: Start: 01-19-2017 End: 02-28-2017 *MISC - Miscellaneous Lab Test #1 *MISC - Miscellaneous Lab Test #1 [facility] Work Phone: Start: 01-19-2017 End: 02-28-2017 *MISC2 - Miscellaneious Lab Test #2 *MISC2 - Miscellaneious Lab Test #2 [facility] Work Phone: Start: 01-19-2017 End: 02-28-2017 Dehydroepiandrosterone sulfate (DHEA-S) *DHEA - DHEA-S (Dehydroepiandrosteron e Sullfate) [facility] Work Phone: Start: 01-19-2017 End: 06-05-2017 Lipid panel [AGGREGATE] *Lipid Profile [facility] Work Phone: Start: 01-19-2017 End: 02-28-2017 Testosterone *Testosterone [facility] Work Phone: Payers Date Payer Category Payer Unknown [id number] [id number] 1990 Unknown [id number] Unknown [id number] Summary Purpose Family History No Family History Records Found Advance Directives No Advanced Directives Records Found Additional Source Comments INFORMATION SOURCE (unrecogn ized section and content) FOR RECORDS PERTAINING TO PATIENTS WHO ARE OR HAVE BEEN ENROLLED IN A CHEMICAL DEPENDENCY/SUBSTANCEABUSE PROGRAM, SOME INFORMATION MAY BE OMITTED. This clinical summary was aggregated from multiple sources. Caution should be exercised in using it in the provision of clinical care. This summary normalizes information from multiple sources, and as a consequence, information in this document may materially change the coding, format and clinical context of patient data. In addition, data may be omitted in some cases. CLINICAL DECISIONS SHOULD BE BASED ON THE PRIMARY CLINICAL RECORDS. [employer] provides no warranty or guarantee of the accuracy or completeness of information in this document.
[2023-10-13 13:10] LABS: Absolute Lymphocyte Count 1.76 X10^3/uL (0.83-4.51); Absolute Neutrophil Count 4.6 X10^3/uL (2.0-7.7); Basophil# 0.04 X10^3/uL; Basophil% 0.6 % (0-1); Eosinophil# 0.12 X10^3/uL; Eosinophils% 1.7 % (0-5); Hematocrit 39.1 % (37-47); Hemoglobin 12.8 g/dL (12.0-15.0); Lymphocyte # 1.76 X10^3/ul (0.83-4.51); Lymphocyte % 25.3 % (19-41); Mean Corp Hgb Conc 32.7 g/dL (32-36); Mean Corpuscular Hgb 26.9 pg (27.0-32.0); Mean Corpuscular Volume 82.3 fL (81-99); Mean Platelet Vol. 10.8 fl (6.2-12.0); Monocyte% 5.7 % (0-10); NRBC Flagged by Analyzer 0 % (0-5); Neutrophil # 4.64 X10^3/uL (2.7-7.7); Neutrophil % 66.6 % (47-70); Platelet Count 226 K/mm3 (150-450); RBC Distribution Width CV 12.9 % (11.6-14.6); RBC Distribution Width SD 38.5 fl (35.1-43.9); Red Blood Count 4.75 M/mm3 (4.2-5.4)
[2023-10-13 14:04] LABS: Hemoglobin A1c 5.3 % (3.8-5.6)
[2023-10-13 14:16] LABS: HIV - WCH Non-Reactive (Nonreactive); Hepatitis B Surface Antigen Non-Reactive (Nonreactive); Hepatitis C Antibody Non-Reactive (Nonreactive); Rubella IgG Reactive (Nonreactive); Syphilis Antibodies Non-reactive
[2023-10-18 06:09] LABS: Chlamydia By Nucleic Acid AMP Negative (Negative); Gonococcus By Nucleic Acid AMP Negative (Negative)
== END | disposition home or self-care (01) ==
PROVIDERS: PCP Family Medicine; Referring Provider Advanced Practice Midwife; Visit Provider Advanced Practice Midwife
DX: Z34.90 Encounter for supervision of normal pregnancy, unspecified, unspecified trimester (principal); Z3A.00 Weeks of gestation of pregnancy not specified
CPT/HCPCS: 36415; 83036; 85025; 86703; 86762; 86780; 86803; 86850; 86900; 86901; 87086; 87340; 87491; 87591

== ENCOUNTER → 2023-12-08 | Outpatient (CLI) | payer OTHER, SELFPAY ==
--- OUTSIDE RECORDS SUMMARY | 2023-12-08 19:58 | XMS RPT_ITS | CCD ---
Author Name Unknown Address [address] [place] [address] Organization [facility] Care Team Providers Care Weaver [place] Name Role Phone [place] DIGGS, Whitney Ly Unavailable [phone] Lavinia Burk LPN Unavailable UnavailJOSE LUIS Ponce Unavailable Unavailable GABI BONE Unavailable UnavailARIN Macias Unavailable Unavailable WILIAN SIMMS Unavailable Unavailable GABI BONE Unavailable UnavailARIN Macias Unavailable Unavailable Allergies Allergy Classification Reported Allergen(s) Allergy Type Date of Onset Reaction(s) Facility (3 sources) penicillin g drug allergy 7 [facility] Work Phone: (1 source) Penicillins; Translations: [PENICILLINS] Propensity to adverse reactions to drug (disorder) 7 [facility] Repository Medications Completed/Discontinued Medications Medication Drug Class(es) Dates Sig (Normalized) Sig (Original) ETONOGESTREL-ETHINYL ESTRADIOL (3 sources) Progestin, Estrogen NUVARING 0.12-0.015 MG/24HR RING Use as directed. ETONOGESTREL-ETHINY L ESTRADIOL [id number] Whitney Toledo NP metFORMIN hydrochloride 500 mg oral tablet (2 sources) Biguanide Start: 01-27-2017 End: 04-29-2025 METFORMIN HCL 500 MG TABS Take one tablet at breakfast and one at supper METFORMIN HCL [id number] Whitney Toledo NP spironolactone 100 mg oral tablet (3 sources) Aldosterone Antagonist take 1 tablet by mouth once daily SPIRONOLACTONE 100 MG TABS One tablet by mouth daily SPIRONOLACTONE [id number] Whitney Toledo NP Problems Problem Classification Problem [...] BP Systolic 127 mm[Hg] Lavinia Burk LPN [facility] Work Phone: 01-19-2017 14:09-0400 Height 172.72 cm Lavinia Burk LPN [facility] Work Phone: 01-19-2017 14:09-0400 Pulse (Heart Rate) 88 /min [facility] Work Phone: 01-19-2017 14:09-0400 Pulse Oximetry 98 % Lavinia Burk LPN [facility] Work Phone: 01-19-2017 14:09-0400 Respiratory Rate 16 /min [facility] Work Phone: 01-19-2017 14:09-0400 Weight 85.64 kg Lavinia Burk LPN [facility] Work Phone: Encounters Encounter Date Encounter Type Care Provider Facility Start: 09-25-2018 End: 09-25-2018 Patient encounter procedure WILIAN SIMMS [facility] Start: 09-11-2018 End: 09-11-2018 Patient encounter procedure JOSE LUIS Javy NICHOLE [facility] Procedures Date Procedure Procedure Detail Performing Clinician Start: 02-22-2017 End: 02-28-2017 Us exam, pelvic, complete Whitney Toledo CHILD CARE LEAD TEACHER Work Phone: Start: 01-19-2017 End: 02-28-2017 *CMP Complete Metabolic Panel Whitney Calderón hussein CHILD CARE LEAD TEACHER Work Phone: Start: 01-19-2017 End: 02-28-2017 *MISC - Miscellaneous Lab Test #1 Whitney Toledo CHILD CARE LEAD TEACHER Work Phone: Start: 01-19-2017 End: 02-28-2017 *MISC2 - Miscellaneious Lab Test #2 Whitney Toledo CHILD CARE LEAD TEACHER Work Phone: Start: 01-19-2017 End: 02-28-2017 Dehydroepiandrosterone sulfate (DHEA-S) Whitney Ly [place] CHILD CARE LEAD TEACHER Work Phone: Start: 01-19-2017 End: 02-28-2017 Lipid panel [AGGREGATE] Whitney Malachi Toledo N P Work Phone: Start: 01-19-2017 End: 02-28-2017 Testosterone Whitney Delgadowillow CHILD CARE LEAD TEACHER Work Phone: Plan of Treatment Date Care Activity Detail Author Start: 02-22-2017 End: 02-28-2017 Us exam, pelvic, complete US Pelvis [facility] Work Phone: Start: 01-19-2017 End: 02-28-2017 *CMP Complete Metabolic Panel *CMP Complete Metabolic Panel [facility] Work Phone: Start: 01-19-2017 End: 02-28-2017 *MISC - Miscellaneous Lab Test #1 *MISC - Miscellaneous Lab Test #1 [facility] Work Phone: Start: 01-19-2017 End: 02-28-2017 *MISC2 - Miscellaneious Lab Test #2 *MISC2 - Miscellaneious Lab Test #2 [facility] Work Phone: Start: 01-19-2017 End: 02-28-2017 Dehydroepiandrosterone sulfate (DHEA-S) *DHEA - DHEA-S (Dehydroepiandrosteron e Sullfate) [facility] Work Phone: Start: 01-19-2017 End: 06-05-2017 Lipid panel [AGGREGATE] *Lipid Profile [facility] Work Phone: Start: 01-19-2017 End: 02-28-2017 Testosterone *Testosterone [facility] Work Phone: Payers Date Payer Category Payer Unknown [id number] 1990 Unknown [id number] Unknown [id number] Summary Purpose Family History No Family History [...] BE BASED ON THE PRIMARY CLINICAL RECORDS. [employer] provides no warranty or guarantee of the accuracy or completeness of information in this document.
== END | disposition home or self-care (01) ==
LOC: PAVLAB 11:40
PROVIDERS: PCP Family Medicine; Referring Provider Obstetrics & Gynecology; Visit Provider Obstetrics & Gynecology
DX: Z36.9 Encounter for antenatal screening, unspecified (principal)
CPT/HCPCS: 36415

== ENCOUNTER → 2024-03-01 | Outpatient (CLI) | payer OTHER, SELFPAY ==
[2024-03-01 15:31] LABS: Absolute Lymphocyte Count 1.63 X10^3/uL (0.83-4.51); Absolute Neutrophil Count 6.3 X10^3/uL (2.0-7.7); Basophil# 0.02 X10^3/uL; Basophil% 0.2 % (0-1); Eosinophil# 0.16 X10^3/uL; Eosinophils% 1.9 % (0-5); Hematocrit 34.5 % (37-47); Hemoglobin 11.1 g/dL (12.0-15.0); Lymphocyte # 1.63 X10^3/ul (0.83-4.51); Lymphocyte % 19.3 % (19-41); Mean Corp Hgb Conc 32.2 g/dL (32-36); Mean Corpuscular Hgb 27.3 pg (27.0-32.0); Mean Corpuscular Volume 84.8 fL (81-99); Mean Platelet Vol. 11.4 fl (6.2-12.0); Monocyte# 0.32 X10^3/uL; Monocyte% 3.8 % (0-10); NRBC Flagged by Analyzer 0 % (0-5); Neutrophil # 6.31 X10^3/uL (2.7-7.7); Neutrophil % 74.6 % (47-70); Platelet Count 188 K/mm3 (150-450); RBC Distribution Width CV 13.2 % (11.6-14.6); RBC Distribution Width SD 40.2 fl (35.1-43.9); Red Blood Count 4.07 M/mm3 (4.2-5.4); White Blood Count 8.5 K/mm3 (4.4-11.0)
[2024-03-01 16:47] LABS: Glucose Challenge Gest 1H 50g 146 mg/dL (70-140)
[2024-03-01 20:06] LABS: HIV - WCH Non-Reactive (Nonreactive); Syphilis Antibodies Non-reactive
== END | disposition home or self-care (01) ==
LOC: LAB 13:42
PROVIDERS: PCP Family Medicine; Referring Provider Nurse Practitioner Women's Health; Visit Provider Nurse Practitioner Women's Health
DX: Z34.90 Encounter for supervision of normal pregnancy, unspecified, unspecified trimester (principal); Z3A.00 Weeks of gestation of pregnancy not specified
CPT/HCPCS: 36415; 82950; 85025; 86703; 86780

== ENCOUNTER → 2024-03-16 | Outpatient (CLI) | payer OTHER, SELFPAY ==
[2024-03-16 11:06] LABS: Glucose GTT-Gestation. Fasting 87 mg/dL (<105)
[2024-03-16 11:48] LABS: Glucose GTT-Gestational 1 Hr 177 mg/dL (<190)
[2024-03-16 14:05] LABS: Glucose GTT-Gestational 2 Hr 124 mg/dL (<165)
[2024-03-16 14:17] LABS: Glucose GTT-Gestational 3 Hr 133 L (<145)
== END | disposition home or self-care (01) ==
LOC: LAB 10:06
PROVIDERS: PCP Family Medicine; Referring Provider Nurse Practitioner Women's Health; Visit Provider Nurse Practitioner Women's Health
DX: R73.09 Other abnormal glucose (principal)
CPT/HCPCS: 36415; 82951; 82952

== ENCOUNTER → 2024-05-03 | Outpatient (CLI) | payer OTHER, SELFPAY | END | disposition home or self-care (01) | PROVIDERS: PCP Family Medicine; Referring Provider Obstetrics & Gynecology; Visit Provider Obstetrics & Gynecology | DX: O09.92 Supervision of high risk pregnancy, unspecified, second trimester (principal); Z3A.00 Weeks of gestation of pregnancy not specified | CPT/HCPCS: 87081 ==

== ENCOUNTER 2024-05-29 12:10 | Inpatient (IN) | payer OTHER, SELFPAY ==
[2024-05-29] VITALS (97 sets, daily range): BP systolic 118–148; BP diastolic 61–91; PULSE 66–106; RESP 16; TEMP 36.1–36.7; O2SAT 92–100; BMI 37.2
--- NOTE | 2024-05-29 12:34 | HP.PCM.OB_ITS ---
HPI - General General Date of Admission: 05/29/24 HPI Narrative CB MCCANN, is a 33 y/o @ 40 weels 1 day who presents to L&D at 5 cm dilated. She denies loss of fluid, vaginal bleeding, or dec fm. plan is to augment labor. Maternal Data Information POONAM Calculator Estimated Delivery Date Method Current WG Current Estimate 05/28/24 Ultrasound #1 40w 1d Other Estimates 05/14/24 LMP (Certain) 42w 1d PFSH PFSH Medical History Hx of infertility Hx of abnormal cervical Pap smear Seasonal allergies Vaginal delivery Left thyroid nodule PCOS (polycystic ovarian syndrome) Home Medications ?Medication ?Instructions ?Recorded ?Last Taken ?Type vit no.164-ferrous tab PO DAILY 10/06/23 Unknown History gluconate 6 mg-folate 833.5 mcg DFE tablet (Yamileth PNV) Allergy/AdvReac Type Severity Reaction Status Date / Time amoxicillin (Amoxicillin) Allergy Hives Verified 05/29/24 11:13 Family History Father Cleft lip Surgical History [place] teeth extracted S/P tonsillectomy and adenoidectomy Social History adopted: No household members: spouse and children number of children: 2 current occupational status: employed current occupation: [employer] current occupational exposures/hazards: No pets and animals: No history of recent travel: No sexually active: Yes Smoking Status: Never smoker alcohol intake: current alcohol intake frequency: holidays/special occasions only details: NOT WHILE substance use type: does not use well-balanced diet: daily or most days caffeine: No eating out: 1-3 times/week during the past year weight has: remained stable what type of physical activity do you participate in: other details: VOLLEYBALL frequency: 3-4 times per week duration: 45-60 minutes/day nghia/taoist: [employer]eterian seatbelt use: always do you feel safe at home: Yes additional social history: Nayely Rileyiff Patient works at [employer] History 3 Elective abortions Hx Para 2 Spontaneous abortions Hx # Term Pregnancies Ectopic pregnancies Hx # Pregnancies Multiple births # of living children 2 Past Pregnancies Del. Date Name GA/Weeks Outcome Route Bth Weight Gen Labor Lgth Anesthesia Del Locatn Provider FOB 02/13/19 Michael 41 live - full term Male epidu ral [facility] SHEA 06/05/22 Cooper 40 live - full term 8lbs 7oz Male epi dural [facility] Winnie Yin Delivery Date: 02/13/19 Last Updated by: Talita Nava Post dates Delivery Date: 06/05/22 Last Updated by: Jacquelin Reilly see problem list for complications, and ial 40 sm. Visit Details Expected Delivery Route/Plan Labor Preferences- CB/BF classes: no labor support person: Humphrey labor intervention preferences: [] pain management options preferred: epidural cut cord/dad catch: cord : yes PP control planned: discussed discussed possible routes of delivery and associated risks: [] special requests: [] Plans Covid status: [] Flu vaccine: at employer Tdap vaccine: given Rhogam: NA LARC form signed: yes Problem list reviewed and updated with the most current plan of care details and appropriate orders placed. Relevant counseling for the gestational age provided. Continue routine care and follow up unless otherwise noted in visit notes/problem list details OB Flowsheet Initial Weight: Not Recorded Date -?-?-?-?-?-?-?-?-?-?-?-?- EGA Weight BP Urine Prot -?-?-?-?-?-?-?-?-?-?-?-?- Glucose FHR FuHt Pres Dilation -?-?-?-?-?-?-?-?-?-?-?-?- Effaced St Visit Note 10/13/23 -?-?-?-?-?-?-?-?-?-?-?-?- 7w 3d 237 lb 128/83 -?-?-?-?-?-?-?-?-?-?-?-?- 153 -?-?-?-?-?-?-?-?-?-?-?-?- KW- CRL 12mm tod ay. not cons with dates. POONAM changed. declines NIPT KW- CRL 12mm today. not cons with dates. POONAM changed. declines NIPT. KW- CRL 12mm today. not cons with dates. POONAM changed. declines NIPT. would like AFP. 11/07/23 -?-?-?-?-?-?-?-?-?-?-?-?- 11w 0d 238 lb 2 oz 124/72 Nega tive -?-?-?-?-?-?-?-?-?-?-?-?- Negative 160 -?-?-?-?-?-?-?-?-?-?-?-?- -No VB or cram ping. Nausea resolved. Denies concerns 12/08/23 -?-?-?-?-?-?-?-?-?-?-?-?- 15w 3d 230 lb 129/80 Trace -?-?-?-?-?-?-?-?-?-?-?-?- Negative 150 -?-?-?-?-?-?-?-?-?-?-?-?- - no vb lof cr amping afp today 01/05/24 -?-?-?-?-?-?-?-?-?-?-?-?- 19w 3d 235 lb 118/85 -?-?-?-?-?-?-?-?-?-?-?-?- 145 -?-?-?--?-?-?-?-?-?-?-?-?- KW- no vb/crampi ng. + flutters. Anatomy US. needs more views. no concerns today. 02/02/24 -?-?-?-?-?-?-?-?-?-?-?-?- 23w 3d 239 lb 120/70 Negative -?-?-?-?-?-?-?-?-?-?-?-?- Negative 143 -?-?-?-?-?-?-?-?-?-?-?-?- MH-No VB, LOF. G ood FM. Denies concerns. Larc 03/01/24 -?-?-?-?-?-?-?-?-?--?-?-?- 27w 3d 241 lb 6 oz 125/84 Nega tive -?-?-?-?-?-?-?-?-?-?-?-?- Negative 135 28 -?-?-?-?-?-?-?-?-?-?-?-?- KW- no vb/lof/ct x. good fm. 28 week labs today. 03/19/24 -?-?-?-?-?-?-?-?-?-?-?-?- 30w 0d 243 lb 122/73 Trace A -?-?-?-?-?-?-?-?-?-?-?-?- Negative 135 31 -?--?-?-?-?-?-?-?-?-?-?-?- SM- no vb lof go od fm no regular ctx 04/05/24 -?-?-?-?-?-?-?-?-?-?-?-?- 32w 3d 238 lb Negative -?-?-?-?-?-?-?-?-?-?-?-?- Negative 141 32 -?-?-?-?-?-?-?-?-?-?-?-?- JV- no lof, vagi nal bleeding, or dec fm. no complaints. 04/19/24 -?-?-?-?-?-?-?-?-?-?-?-?- 34w 3d 243 lb 4 oz 119/73 Nega tive -?-?-?-?-?-?-?-?-?-?-?-?- Negative 142 36 -?-?-?-?-?-?-?-?-?-?-?-?- JV- no lof, vagi nal bleeding, or dec fm. 05/03/24 -?-?-?-?-?-?-?-?-?-?-?-?- 36w 3d 242 lb 6 oz 118/72 Nega tive -?-?-?-?-?-?-?-?-?-?-?-?- Negative 136 37 Cephalic 2 -?-?-?-?-?-?-?-?-?-?-?-?- 50 -2 JV- no lof , vaginal bleeding, or dec fm. gbs collected. labor precautions discussed. 05/10/24 -?-?-?-?-?-?-?-?-?-?-?-?- 37w 3d 239 lb 120/84 Trace -?-?-?-?-?-?-?-?-?-?-?-?- Negative 140 38 Cephalic 3 -?-?-?-?-?-?-?-?-?-?-?-?- 60 -2 KW- no vb/ lof/cramping. good fm. labor precautions 05/17/24 -?-?-?-?-?-?-?-?-?-?-?-?- 38w 3d 245 lb 126/74 Negative -?-?-?-?-?-?-?-?-?-?-?-?- Negative 140 39 Cephalic 3 -?-?-?-?-?-?-?-?-?-?-?-?- 60 -1 SM- no vb lof good fm n oregular ctx 05/24/24 -?-?-?-?-?-?-?-?-?-?-?-?- 39w 3d 247 lb 137/84 124/79 Negative -?-?-?-?-?-?-?-?-?-?-?-?- Negative 140 39 Cephalic 4 -?-?-?-?-?-?-?-?-?-?-?-?- 60 -1 SM- no vb lof good fm no regular ctx 05/29/24 -?-?-?-?-?-?-?-?-?-?-?-?- 40w 1d 247 lb 134/82 Negative -?-?-?-?-?-?-?-?-?-?-?-?- Negative 145 40 Cephalic 5 -?-?-?-?-?-?-?-?-?-?-?-?- 70 -1 JV- no lof , vaginal bleeding, having irregular contractions, lives 1 hour away and bp mildly elevated. sending to L&D for augmentation. ROS Constitutional Constitutional: Denies change in weight, fatigue, fever(s), headache(s), poor appetite or weakness Eyes Eyes: Denies blurry vision, change in vision, seeing flashes or spots in vision ENT HEENT: Denies dizziness, headache(s), loss taste/smell or sore throat Cardiovascular Cardiovascular: Denies chest pain, dizziness, dyspnea, irregular heart rhythm, leg edema, palpitations, rapid heart rate or vomiting Respiratory/Chest Respiratory/Chest: Denies chest tightness, cough, dyspnea or breast pain Gastrointestinal Gastrointestinal: Denies abdominal pain, anorexia, constipation, cramping, diarrhea, hemorrhoids, vomiting or weight changes Genitourinary Genitourinary: Denies dysuria, flank pain, genital lesions, genital pain, ur inary frequency or urinary urgency Musculoskeletal Musculoskeletal: Denies back pain, difficulty walking, joint pain, limited range of motion, muscle cramps or numbness Integumentary Integumentary: Denies lesions or unusual bruising Neurologic Neurologic: Denies abnormal movements, abnormal speech, dizziness, numbness, seizure-like activity or syncope Psychiatric Psychiatric: Denies anxiety, behavioral changes, change in appetite, change in libido, cognitive impairment, confusion, depression, difficulty concentrating, hallucinations or suicidal thoughts Endocrine Endocrinology: Denies excessive sweating, polydipsia or polyuria Hematologic/Lymphatic Hematologic/Lymphatic: Denies easy bleeding, easy bruising or lymphadenopathy Allergic/Immunologic Allergic/Immunologic: Denies itchy eyes, lip swelling, seasonal rhinorrhea, rhinitis, throat swelling, tongue swelling, eczemia, wheezing or asthma Vital Signs Vital Signs Vital Signs: Weight Weight: 245 lb Body Mass Index (BMI) 37.2 Physical Exam Const alert, oriented x3, no apparent distress and healthy appearing General Appearance: cooperative; Negative for anxious HEENT normocephalic Face and Sinus: normal facial exam Eyes EOMs intact bilaterally and no scleral icterus General Eye: normal appearance of both eyes Neck full ROM and supple Lymph Lymphatic: no lymphadenopathy noted Chest Chest: abnormal inspection of the chest Resp normal respiratory effort Effort and Inspection: able to speak in complete sentences Cardio regular rate GI soft to palpation and non-tender Inspection: gravid Palpation: soft; Negative for tender external exam normal Amniotic Fluid: ROM+plus Back/Spine no CVA tenderness Extremity normal to inspection, full ROM and no clubbing, cyanosis or edema General Extremity: Negative for calf tenderness or edema Skin Lesions: no lesions Rashes: no rashes Psych mental status grossly normal Labs Labs Labs: Blood Type A POSITIVE Antibody Screen NEGATIVE Hct 34.5 % (37-47) L Hgb 11.1 g/dL (12.0-15.0) L Syphilis Total Ab Non-reactive VZV IgG Antibody 1610 index (0-134) H Rubella IgG Antibody Reactive (Nonreactive) Hep Bs Antigen Non-Reactive (Nonreactive) Hepatitis C Antibody Non-Reactive (Nonreactive) Chlamydia DNA (KARLOS) Negative (Negative) N.gonorrhoeae DNA (KARLOS) Negative (Negative) HIV 1&2 Antibody Non-Reactive (Nonreactive) Glucose 1 Hr 50 gm 146 mg/dL (70-140) H Gest Glucose Tolerance MG/DL Rhogam given: No Miscellaneous Test Assessment & Plan (1) Abnormal glucose: COMMENT: nl 3 hr gtt (2) Supervision of high-risk : QUALIFIERS: Trimester: second trimester Qualified Code(s): O09.92 - Supervision of high risk , unspecified, second trimester COMMENT: [id number], POONAM 05/14/24,surprise Vitor Robert Humphrey (3) : QUALIFIERS: Weeks of gestation: 40 weeks Qualified Code(s): Z3A.40 - 40 weeks gestation of COMMENT: Neg GBS. nl anatomy, Declines genetic & carrier testing. Negative AFP screening. PLAN: Plan Patient presents for augmentation, plan management for with pitocin/AROM. Pain management: plans epidural. GBS negative. Management of any complications: none I have reviewed the [facility] and made any clinically relevant updates.
[2024-05-29] MEDS: Lactated Ringers 1,000 ML 999 ML IV (13:03)
[2024-05-29 13:08] LABS: Absolute Lymphocyte Count 2.11 X10^3/uL (0.83-4.51); Absolute Neutrophil Count 6.7 X10^3/uL (2.0-7.7); Basophil# 0.02 X10^3/uL; Basophil% 0.2 % (0-1); Eosinophil# 0.15 X10^3/uL; Eosinophils% 1.6 % (0-5); Hematocrit 37.8 % (37-47); Hemoglobin 12.4 g/dL (12.0-15.0); Lymphocyte # 2.11 X10^3/ul (0.83-4.51); Lymphocyte % 22.2 % (19-41); Mean Corp Hgb Conc 32.8 g/dL (32-36); Mean Corpuscular Hgb 26.9 pg (27.0-32.0); Mean Platelet Vol. 11.6 fl (6.2-12.0); Monocyte# 0.52 X10^3/uL; Monocyte% 5.5 % (0-10); NRBC Flagged by Analyzer 0 % (0-5); Neutrophil # 6.69 X10^3/uL (2.7-7.7); Neutrophil % 70.2 % (47-70); Platelet Count 197 K/mm3 (150-450); RBC Distribution Width CV 13.4 % (11.6-14.6); RBC Distribution Width SD 39.8 fl (35.1-43.9); Red Blood Count 4.61 M/mm3 (4.2-5.4); White Blood Count 9.5 K/mm3 (4.4-11.0)
[2024-05-29 13:49] LABS: Syphilis Antibodies Non-reactive
[2024-05-29] MEDS: Lactated Ringers 1,000 ML 200 ML IV ×2 (13:51→17:35)
[2024-05-29] MEDS: fentaNYL-bupivacaine (epidural) 100 ML BAG EPIDURAL (14:47)
--- NOTE | 2024-05-29 17:42 | PN_ITS ---
Progress Note patient is comfortable with epidural. current tracing: FHT: Moderate variability reactive no decelerations category I tracing [place]: q 2 min Contractions cx: 8/80/-1 with bloody show reviewed tracing abnormalities since last note: no changes A/P: patient is arturo on her own and has not required pitocin. continue current observation and expectant management. if no cervical change in one hour will give some pitocin.
[2024-05-29] MEDS: Oxytocin 15 Units/NS 250ml 15 UNITS/250 ML IV.SOLN 334 UNITS IV (18:49)
--- NOTE | 2024-05-29 19:05 | OP.PCM_ITS ---
Assessment & Plan (1) Abnormal glucose: COMMENT: nl 3 hr gtt (2) Supervision of high-risk : QUALIFIERS: Trimester: second trimester Qualified Code(s): O09.92 - Supervision of high risk , unspecified, second trimester COMMENT: [id number], POONAM 05/14/24,surprise PC Vitor Rodriguez Humphrey (3) : QUALIFIERS: Weeks of gestation: 40 weeks Qualified Code(s): Z3A.40 - 40 weeks gestation of COMMENT: Neg GBS. nl anatomy, Declines genetic & carrier testing. Negative AFP screening. Maternal Data Information POONAM Calculator Estimated Delivery Date Method Current WG Current Estimate 05/28/24 Ultrasound #1 40w 1d Other Estimates 05/14/24 LMP (Certain) 42w 1d Gestational age: 40 weeks 1 day Vaginal Delivery Maternal Presentation Maternal Presentation: Active Labor Type of Induction: Amniotomy Operative Information Date of Procedure: 05/29/24 Pre-Operative Diagnosis: 33 y/o @ 40 weeks 1 day, early active labor Post-Operative Diagnosis: 33 y/o @ 40 weeks 1 day, early active labor Surgery / Procedure Performed: Spontaneous Vaginal Delivery Type of Anesthesia: Epidural Drain: Julian to straight drain Estimated Blood Loss: 100cc Time of Delivery: 18:47 Findings Description of Procedure: Patient began pushing and delivered the head in the JUVENAL presentation. The head was delivered atraumatically. The anterior and posterior shoulders delivered without complication followed by the rest of the and the infant was placed on the maternal abdomen. Delayed cord clamping was employed for approximately 60 seconds. Cord was clamped and cut and gentle traction was applied to the cord and the placenta delivered spontaneously immediately following it was noted to be intact with three-vessel cord. The perineum was inspected and noted to be intact. There was a small anil-clitoral laceration that ran from the superior aspect of the urethra to the clitoris. This was repaired using a 3-0 vicyl suture. EBL was 100 cc. Patient and tolerated delivery well. baby boy Beau Presentation: Vertex Amniotic Membrane Rupture Type: Spontaneous Time of Membrane Rupture: 1400 Amniotic Fluid Description: Clear Placental Delivery Description: Spontaneous Placenta Disposition: [facility] Cord Vessel Description: 3 Vessels Cord Entanglement: Around neck x 1, loose Infant A Gender: Male (1 minute): 8 (5 minute): 9 Delayed Cord Clamping: Yes Post Vaginal Delivery Medications Given After Delivery: IV Pitocin Episiotomy Description: None Laceration: Periurethral Extnsion/lac Complication Complications: None Multi Select Codes Urinary/Genital Urinary/Genital CPT Codes: 84314 Vaginal Delivery [facility]
--- NOTE | 2024-05-29 19:09 | DCINST_ITS ---
Discharge Instructions Diet Discharge Diet: No restrictions Activity Discharge Activity: Return to Normal Activity, May Not Drive (while taking narcotic pain medications.) and May Shower May resume sexual activity in: 4-6 weeks Dressing / Incision Call your doctor if your incision/area has: Continuous Slow Oozing, Sudden Increased Bleeding, Increased Pain/ Swelling, Increased Redness and Foul Smelling Discharge Follow Up Care Please Follow Up With: Kylee Pinto, DO When: Call [phone] to make an appointment with your doctor in 6 weeks. If you had elevated blood pressure or 4th degree laceration, you will need to be seen in 2 weeks. Test Results: Test results from this visit will be discussed in further detail at your follow- up appointment, if applicable. Discharge Plan Admission Admit Date/Time: 05/29/24 12:10 Attending Provider: Kylee Pinto Primary Care Provider: Bebe Benoit Discharge Orders/Prescriptions Prescriptions: No Action PNV 6 mg iron- 833.5 mcg DFE tablet PO DAILY Referrals / Follow Up: Bebe Benoit MD [Primary Care Provider] -
[2024-05-29] MEDS: Oxytocin 15 Units/NS 250ml 15 UNITS/250 ML IV.SOLN 83 UNITS IV (19:21)
[2024-05-30 04:11] VITALS: BP 110/66; PULSE 72; RESP 16; TEMP 36.6; O2SAT 98
[2024-05-30] MEDS: Naproxen 500 MG Tablet PO (07:47)
--- NOTE | 2024-05-30 07:47 | PCM.PN.OB ---
Subjective Subjective Patient doing well without complaints. Tolerating PO. Ambulating and voiding without difficulty. Feeding well. Denies chest pain, shortness of breath, calf pain/swelling, fevers, chills, lightheadedness. Objective Data Objective Data Vital Signs: Vital Signs Temp Pulse Resp BP Pulse Ox O2 Del Method 97.8 F 72 16 110/66 98 Room Air 05/30/24 04:11 05/30/24 04:11 05/30/24 04:11 05/30/24 04:11 05/30/24 04:11 05/30/24 04:11 Oxygen Delivery Method Room Air Weight: 245 lb Body Mass Index (BMI) 37.2 Intake & Output: Intake and Output for Last 24 Hours 05/28/24 05/29/24 05/30/24 23:59 23:59 23:59 Intake Total 2551.47 / 2551.47 Output Total 100 / 100 750 / 750 Balance 2451.47 / 2451.47 -750 / -750 Lab / Micro Data 05/29/24 12:55 Labs: Laboratory Results - last 24 hr 05/29/24 12:55: WBC 9.5, RBC 4.61, Hgb 12.4, Hct 37.8, MCV 82.0, MCH 26.9 L, MCHC 32.8, RDW Std Deviation 39.8, RDW Coeff of Milly 13.4, Plt Count 197, MPV 11.6, Immature Gran % (Auto) 0.300, Neut % (Auto) 70.2 H, Lymph % (Auto) 22.2, [place] % (Auto) 5.5, Eos % (Auto) 1.6, Baso % (Auto) 0.2, Absolute Neuts (auto) 6.7, Absolute Lymphs (auto) 2.11, Nucleated RBC % 0, Syphilis Total Ab Non-reactive, Blood Type A POSITIVE, Antibody Screen NEGATIVE Physical Exam Const alert and oriented x3 HEENT normocephalic Eyes PERRL Neck full ROM Resp normal respiratory effort GI soft to palpation GI Narrative: FF below U Assessment & Plan (1) Spontaneous vaginal delivery: COMMENT: ANAID Guaman PLAN: Plan s/p PPD # 1 1. routine post delivery care 2. breast feeding- support given 3. rh positive 4. rubella immune 5. home today
[2024-05-30 08:00] VITALS: BP 134/80; PULSE 76; RESP 16; TEMP 36.4; O2SAT 99
[2024-05-30 12:00] VITALS: BP 129/76; PULSE 79; RESP 17; TEMP 36.6; O2SAT 98
[2024-05-30 16:00] VITALS: BP 132/72; PULSE 80; RESP 16; TEMP 36.6; O2SAT 99
== END 2024-05-30 20:07 | disposition home or self-care (01) | DRG 807 ==
PROVIDERS: Admitting Provider Obstetrics & Gynecology; PCP Family Medicine; Visit Provider Obstetrics & Gynecology
DX: O48.0 Post-term pregnancy (principal); Z37.0 Single live birth; O99.814 Abnormal glucose complicating childbirth; O69.81X0 Labor and delivery complicated by cord around neck, without compression, not applicable or unspecified; Z3A.40 40 weeks gestation of pregnancy; O71.82 Other specified trauma to perineum and vulva
CPT/HCPCS: 59025; 59050; 85025; 86780; 86850; 86900; 86901; 99221; G0378

== ENCOUNTER → 2025-07-10 | Outpatient (CLI) | payer OTHER, SELFPAY ==
--- NOTE | 2025-07-10 16:25 | US_ITS ---
PROCEDURE: TRANSVAGINAL W/PREG US 07/10/2025 REASON FOR EXAM: PROBABLE MISCARRIAGE TECHNIQUE: Procedure Code: [id number] Modality: US Procedure: TRANSVAGINAL W/PREG US COMPARISON: None FINDINGS Uterus measures 10.4 x 6.0 x 4.9 cm. No uterine fibroids are noted. Cervix is closed. No significant free fluid within the cul-de-sac. Intrauterine gestational sac measures 1.9 cm and the yolk sac measures 3 mm. CRL measures 5 mm. Overall gestational age of 6 weeks and 5 days with POONAM of 02/28/2026. No heart rate is noted at this time. Bilateral ovaries are not well visualized. US/Transvaginal w/Preg US IMPRESSION: Sonographic gestational age of 6 weeks and 5 days however no cardiac acti vity is identified on this exam. Findings may reflect early stages of although early failure is suspected due to timeline. Consider talent acquisition manager consultation, close follow-up ultrasound, and monitoring of beta hCG. Reading Location: [id number]
== END | disposition home or self-care (01) ==
LOC: US 16:23
PROVIDERS: PCP Family Medicine; Referring Provider Obstetrics & Gynecology; Visit Provider Obstetrics & Gynecology
DX: O20.9 Hemorrhage in early pregnancy, unspecified (principal); Z3A.00 Weeks of gestation of pregnancy not specified
CPT/HCPCS: 76817

== ENCOUNTER → 2025-07-11 | Outpatient (CLI) | payer OTHER, SELFPAY ==
[2025-07-11 17:10] LABS: hCG Titer Quant., Serum 429 mIU/mL (<9 non-preg)
== END | disposition home or self-care (01) ==
LOC: LAB 15:19
PROVIDERS: Referring Provider Obstetrics & Gynecology; Visit Provider Obstetrics & Gynecology
DX: O20.0 Threatened abortion (principal); Z3A.00 Weeks of gestation of pregnancy not specified
CPT/HCPCS: 36415; 84702